=== PATIENT | male | born 1960 ===

== ENCOUNTER 2024-08-08 13:33 | Outpatient (AMB) | payer MEDICARE, OTHER, SELFPAY ==
--- NOTE | 2024-08-08 13:33 | A.OFFVIS_ITS ---
Vital Signs 3 08/08/24 13:36 Height 6 ft 1.5 in Weight 209 lb 7.026 oz BMI 27.3 BP 110/70 Blood Pressure Location Lt brachial Position Sitting Pulse 76 Pulse Source Pulse Oximeter Pulse Oximetry (%) 97 Oxygen Delivery Method Room Air Intake Visit Reasons: dyspnea on exertion [employer] Required: No Accompanied by: Self / Same As Patient Allergies No Known Allergies Allergy (Verified 08/08/24 13:37) HPI Comments Details: The patient is here for pulmonary evaluation. The patient is a 64-year-old gentleman with a h/o GALLO on CPAP that has been complaining some difficulty breathing for the last few years. Initially started in 2021. started developing some difficulty inhaling in. Feel like he could not get a deep breath in. Moderate severity. The symptoms come and go, and currently feeling well. Tried inhalers without any significant improvement. Part of the workup he also did have a CT scan of the chest. Actually demonstrated multiple pulmonary nodules largest 1 measuring 7 mm in size. It was followed for some time without any significant changes although the nodules are intermediate in size. Patient subsequently had undergone Pulmonary function studies. The flow volume loop Appearance and plateauing of the flows in 1 of the flows during the inspiratory phase. This suggests the possibility of a dynamic extrathoracic airway resistance or obstruction. He does have a history of sleep apnea so therefore it could be redundant tissue although most likely related to vocal cord dysfunction. At this point will have him repeat the CT scan to follow-up with the pulmonary nodules since he has been more than a year and also should undergo speech therapy to give him good recommendations in order to work with underlying vocal cord dysfunction and laryngeal spasms current the patient is feeling better so therefore no further interventions required at this time. Will follow-up after the studies in 33 minutes. He has not issues prior to this he will call for an earlier assessment. [facility] Medical History (Updated 08/10/24 @ 21:49 by Ilya Sheikh MD) Pulmonary nodules Vocal cord dysfunction GALLO on CPAP GERD (gastroesophageal reflux disease) Dyspnea Social History (Updated 08/08/24 @ 13:40 by Nicole Owen CMA) Patient Tobacco Use Status: Never used Tobacco Review of Systems Const Denies fatigue ENT Reports no additional complaints Card Denies chest pain and Denies dyspnea Resp Reports cough, Denies dyspnea and Denies wheezing GI Reports dyspepsia and Reports heartburn Musc Reports no additional complaints Skin/Breast Denies rash Neuro Reports no additional complaints Endo Denies fatigue Aller/Immun Denies wheezing Physical Exam Vital Signs: Last Vital Signs Pulse 76 08/08/24 13:36 BP 110/70 08/08/24 13:36 Pulse Ox 97 08/08/24 13:36 Oxygen Delivery Method Room Air 08/08/24 13:36 BMI result Body Mass Index 27.3 Const General: comfortable HEENT Head: Yes normocephalic Neck Neck: Yes supple Chest Chest palpation & inspection: normal inspection of the chest Resp Effort & Inspection: normal respiratory effort Auscultation: clear to auscultation bilaterally Cardio Heart sounds: S1 normal heart sound present and S2 normal heart sound present GI Palpation (GI): Soft to palpation Skin General skin exam: no rashes or lesions noted Extrem General: Yes no clubbing, cyanosis or edema Assessment & Plan Assessment & Plan (1) Dyspnea: Code(s): R06.00 - Dyspnea, unspecified Category: Medical Qualifiers: Dyspnea type: shortness of breath Qualified Code(s): R06.02 - Shortness of breath (2) GERD (gastroesophageal reflux disease): Code(s): K21.9 - Gastro-esophageal reflux disease without esophagitis Category: Medical Qualifiers: Esophagitis presence: without esophagitis Qualified Code(s): K21.9 - Gastro-esophageal reflux disease without esophagitis (3) GALLO on CPAP: Code(s): G47.33 - Obstructive sleep apnea (adult) (pediatric) Category: Medical (4) Vocal cord dysfunction: Comment: based on FVL Code(s): J38.3 - Other diseases of vocal cords Category: Medical (5) Pulmonary nodules: Comment: largest 7mm in size Code(s): R91.8 - Other nonspecific abnormal finding of lung field Category: Medical Plan Repeat CT chest, pt prefers [facility] Speech evaluation for recommendations for suspicion of vocal cord dysfuction reflux diet sleep with HOB elevated continue APAP F/U 2-3 months Orders: Orders 2 CT chest wo IV con Today R91.8 - Other nonspecific abnormal finding of lung field Referrals 2 Speech and Hearing Referral J38.3 - Other diseases of vocal cords Coding Level of Care Code New Pt Level 4 (64238) Diagnoses Shortness of breath R06.02 Dyspnea type: shortness of breath Gastroesophageal reflux disease without esophagitis K21.9 Esophagitis presence: without esophagitis GALLO on CPAP G47.33 Vocal cord dysfunction J38.3 Pulmonary nodules R91.8 Time Spent (min) 40
[2024-08-08 13:36] VITALS: BP 110/70; PULSE 76; O2SAT 97; BMI 27.3
== END 2024-08-08 14:13 | disposition home or self-care (01) ==
PROVIDERS: PCP Family Medicine; Visit Provider Hospitalist
DX: R06.02 Shortness of breath (principal); K21.9 Gastro-esophageal reflux disease without esophagitis; G47.33 Obstructive sleep apnea (adult) (pediatric); J38.3 Other diseases of vocal cords; R91.8 Other nonspecific abnormal finding of lung field
CPT/HCPCS: 99204

== ENCOUNTER → 2024-08-08 13:33 | Outpatient (BNVA) | payer MEDICARE, OTHER, SELFPAY | PROVIDERS: PCP Family Medicine; Visit Provider Hospitalist | DX: G47.33 Obstructive sleep apnea (adult) (pediatric) (principal); R06.02 Shortness of breath; K21.9 Gastro-esophageal reflux disease without esophagitis; J38.3 Other diseases of vocal cords; R91.8 Other nonspecific abnormal finding of lung field | CPT/HCPCS: 99202 ==

== ENCOUNTER 2024-10-02 10:59 | Outpatient (AMB) | payer MEDICARE, OTHER, SELFPAY ==
--- OUTSIDE RECORDS SUMMARY | 2024-09-26 23:59 | XMS_ITS | Continuity of Care Document ---
Author Organization [facility] Address [address], [address], [address] [place] [id number]- Care Team Providers Care Foam Caster Name Role Phone Cody HERNANDEZ, Alexis Gutierrez Primary Care Physician [place] [facility] [place] 08/27[place]24 - 09/26/24 [facility] [address], [address] [place] [id number]- Encounter Type: Triage Allergies, Adverse Reactions, Alerts No Known Allergies Immunizations Given and Recorded Vaccine Date Status Refusal Reason SARS-CoV-2 (COVID-19) mRNA BNT-162b2 vac 02/11/21 Recorded SARS-CoV-2 (COVID-19) mRNA BNT-162b2 vac 06/01/20 Recorded SARS-CoV-2 (COVID-19) mRNA BNT-162b2 vac 05/11/20 Recorded influenza virus vaccine, inactivated 12/19/18 Give n tetanus/diphtheria/pertussis, acel(Tdap) 02/18/13 Recorded tetanus-diphtheria toxoids (Td) 03/05/01 Recorded Medications Clotrimazole 1% solution Topically, 2 times a day, 0 Refills, Maintenance, 10/17/23 8:46:00 AM EDT, Partial fill upon patientrequest if the prescription is for a schedule II opioid drug. Start Date: 10/17/23 Status: Ordered Repeat number: 1 clotrimazole 1% topical cream 0 Refills, Maintenance Start Date: 08/09/23 Status: Ordered Repeat number: 1 cyclobenzaprine 10 mg oral tablet 1, tablet, By Mouth, Daily, PRN, # 90 tablet, Refills 3, Tot. Refills 3, Maintenance, NEEDED FORNECK/SHOULDER SPASM, 08/05/24 3:37:00 PM EDT, Route to Pharmacy Electronically, [facility]/pharmacy #[id number], 185.8, cm, 08/05/24 15:17:00 EDT, Height Start Date: 08/05/24 Status: Ordered Quantity: 90.0 Unit: tablet Repeat number: 4 diclofenac 1% topical gel 1 application, Topically, 4 times a day, # 100 Gm, 2 Refills, Maintenance, 10/17/23 9:09:00 AM EDT, Gel, Partial fill upon patient request if the prescription is for a schedule II opioid drug., 185.6,cm, 10/17/23 8:39:00 EDT, Height Start Date: 10/17/23 Status: Ordered Quantity: 100.0 Unit: g Repeat number: 3 gabapentin 100 mg oral capsule 300 mg, 3, capsule, By Mouth, 3 times a day, # 810 capsule, Refills 3, Tot. Refills 3, Maintenance,08/05/24 3:34:00 PM EDT, Route to Pharmacy Electronically, [facility]/pharmacy #[id number], Partial fill upon patient request if the prescription is for a schedule II opioid drug., 185.8, cm, 08/05/24 15:17:00 EDT,Height Start Date: 08/05/24 Status: Ordered Quantity: 810.0 Unit: capsule Repeat number: 4 Glucosamine Chondroitin MSM Complex 0 Refills, Maintenance, 04/11/17 10:37:48 AM EST Start Date: 04/11/17 Status: Ordered Repeat number: 1 ibuprofen 200 mg oral tablet 200 mg, 1, tablet, By Mouth, Every 6 hours, Refills 0, Maintenance, 08/03/22 9:41:00 AM EDT, Partial fill upon patient request if the prescription is for a schedule II opioid drug. Start Date: 08/03/22 Status: Ordered Repeat number: 1 ketoconazole 2% topical cream Topically, Daily, 0 Refills, Maintenance, 03/08/23 1:27:00 PM EST, Partial fill upon patient request if the prescription is for a schedule II opioid drug. Start Date: 03/08/23 Status: Ordered Repeat number: 1 Multivitamin Daily, 0 Refills, Maintenance, 04/11/17 10:38:48 AM EST Start Date: 04/11/17 Status: Ordered Repeat number: 1 Nature's Bounty Red Krill Oil 500 mg oral capsule 2 capsule = 1,000 mg, By Mouth, 2 times a day, 0 Refills, Maintenance, 12/19/18 1:28:52 PM EDT Start Date: 12/19/18 Status: Ordered Repeat number: 1 Tylenol 8 Hour 650 mg oral tablet, extended release 2 tablet = 1,300 mg, By Mouth, Every 8 hours, OTC, 0 Refills, Maintenance, 03/13/22 8:05:00 AM EST, Partial fill upon patient request if the prescription is for a schedule II opioid drug. Start Date: 03/13/22 Status: Ordered Repeat number: 1 Vitamin D3 oral tablet 1 tablet = 400 International_Units, By Mouth, Daily, # 30 tablet, 0 Refills, Maintenance, 04/11/17 10:39:01 AM EST, Tablet Start Date: 04/11/17 Status: Ordered Quantity: 30.0 Unit: tablet Repeat number: 1 Zinc = 140 mg, By Mouth, Daily, 0 Refills, Maintenance, 12/19/18 1:26:12 PM EDT Start Date: 12/19/18 Status: Ordered Repeat number: 1 Problem List Condition Confirmation Course Effective Dates Status H ealth Status Informant Actinic keratosis Confirmed Active Angiolipoma Confirmed Active Anxiety Confirmed Active [facility] arthritis Confirmed Active Acid reflux Confirmed Active Headache Confirmed Active Neuropathy of bilateral feet Confirmed Active Osteoarthritis Confirmed Active Seborrheic keratoses Confirmed Active Swelling of lower leg Confirmed Active Venous insufficiency of both lower extremities Confirmed Active Vitamin D deficiency Confirmed Active Social History Social History Type Response Smoking Status Never smoker entered on: 05/03/17 Sex Sex Representation Male (finding) Patient Care team information Care Team Personnel Name: Alexis Ross MD Position: [facility] Physician - Primary Care Member Role: PCP Address: [address] [place] [address]- Telecom: Care Team Related Persons Name: KVNG PAN Insurance Providers Guarantor name: CODY PAN Health Plan Information #: 1 Payer: MEDICARE B Payer Identifier: ZAYDA Member Number: [id number] Group Number: [id number] Subscriber Identifier: [id number] Relationship to Subscriber: self Coverage Type: NA Coverage Verification Date: NA Telecom: NA Address: Health Plan Information #: 2 Payer: [employer] Payer Identifier: ZAYDA Member Number: [id number] Group Number: [id number] Subscriber Identifier: [id number] Relationship to Subscriber: self Coverage Type: [employer]--Medicare Supplement Coverage Verification Date: ZAYDA Telecom: ZAYDA Address: NA
[2024-10-02 11:15] VITALS: BP 142/80; PULSE 70; O2SAT 100; BMI 27.8
--- NOTE | 2024-10-02 11:15 | MHC.OFFVIS ---
Vital Signs 10/02/24 11:15 Height 6 ft 1.5 in Weight 213 lb 13.574 oz BMI 27.8 BP 142/80 H Blood Pressure Location Lt brachial Position Sitting Pulse 70 Pulse Source Pulse Oximeter Pulse Oximetry (%) 100 Oxygen Delivery Method Room Air Intake Visit Reasons: Dyspnea on Exertion [employer] Required: No Accompanied by: Self / Same As Patient Allergies No Known Allergies Allergy (Verified 10/02/24 11:18) HPI Comments Details: The patient is a 64-year-old gentleman with a h/o GALLO on CPAP that has been complaining some difficulty breathing for the last few years. Initially started in 2021. started developing some difficulty inhaling in. Feel like he could not get a deep breath in. Moderate severity. The symptoms come and go, and currently feeling well. Tried inhalers without any significant improvement. Part of the workup he also did have a CT scan of the chest. Actually demonstrated multiple pulmonary nodules largest 1 measuring 7 mm in size. It was followed for some time without any significant changes although the nodules are intermediate in size. Patient subsequently had undergone Pulmonary function studies. The flow volume loop Appearance and plateauing of the flows in 1 of the flows during the inspiratory phase. This suggests the possibility of a dynamic extrathoracic airway resistance or obstruction. He does have a history of sleep apnea so therefore it could be redundant tissue although most likely related to vocal cord dysfunction. At this point will have him repeat the CT scan to follow-up with the pulmonary nodules since he has been more than a year and also should undergo speech therapy to give him good recommendations in order to work with underlying vocal cord dysfunction and laryngeal spasms current the patient is feeling better so therefore no further interventions required at this time. Will follow-up after the studies in 33 minutes. He has not issues prior to this he will call for an earlier assessment. 10/02/2024 the patient is here for a pulmonary follow-up visit. He actually been feeling well until recently we started developing some heaviness and pressure in the anterior chest area. Primarily when taking a deep breath in. Initially was moderate in amount in his subsided to some. He still feels it on deep inhalation. He also has a had a cough. He did have a CT scan of the chest which I personally reviewed demonstrating no evidence of any airway disease. He does have some stable pulmonary nodules that have been stable for many years so therefore no additional serial imaging studies warranted. He is still waiting to hear back from speech pathology regarding the speech therapy for the vocal cord dysfunction. In addition to that he does have some wheezing on exam. He has tried albuterol in the past without any significant improvement. Will try him on Symbicort at this time he will use a spacer. He also knows to rinse and gargle. If he continues to be symptomatic we can consider also doing a methacholine challenge and blood work to assess for hyperreactive will hypersensitivity reactions. [facility] Medical History (Updated 10/02/24 @ 21:42 by Ilya Sheikh MD) Reactive airway disease Pulmonary nodules Vocal cord dysfunction GALLO on CPAP GERD (gastroesophageal reflux disease) Dyspnea Social History Patient Tobacco Use Status: Never used Tobacco Review of Systems Const Denies fatigue ENT Reports no additional complaints Card Denies chest pain and Reports dyspnea Resp Reports cough and Reports dyspnea GI Reports dyspepsia and Reports heartburn Musc Reports no additional complaints Skin/Breast Denies rash Neuro Reports no additional complaints Endo Denies fatigue Physical Exam Vital Signs: Last Vital Signs Pulse 70 10/02/24 11:15 BP 142/80 H 10/02/24 11:15 Pulse Ox 100 10/02/24 11:15 Oxygen Delivery Method Room Air 10/02/24 11:15 BMI result Body Mass Index 27.8 Const General: comfortable HEENT Head: Yes normocephalic Neck Neck: Yes supple Chest Chest palpation & inspection: normal inspection of the chest Resp Effort & Inspection: normal respiratory effort Auscultation: wheezes and diminished lung sounds Cardio Heart sounds: S1 normal heart sound present and S2 normal heart sound present GI Palpation (GI): Soft to palpation Skin General skin exam: no rashes or lesions noted Extrem General: Yes no clubbing, cyanosis or edema Assessment & Plan Assessment & Plan (1) Dyspnea: Code(s): R06.00 - Dyspnea, unspecified Category: Medical Qualifiers: Dyspnea type: shortness of breath Qualified Code(s): R06.02 - Shortness of breath (2) GERD (gastroesophageal reflux disease): Code(s): K21.9 - Gastro-esophageal reflux disease without esophagitis Category: Medical Qualifiers: Esophagitis presence: without esophagitis Qualified Code(s): K21.9 - Gastro-esophageal reflux disease without esophagitis (3) GALLO on CPAP: Code(s): G47.33 - Obstructive sleep apnea (adult) (pediatric) Category: Medical (4) Vocal cord dysfunction: Comment: based on FVL Code(s): J38.3 - Other diseases of vocal cords Category: Medical (5) Pulmonary nodules: Comment: largest 7mm in size Code(s): R91.8 - Other nonspecific abnormal finding of lung field Category: Medical (6) Reactive airway disease: Code(s): J45.909 - Unspecified asthma, uncomplicated Category: Medical Qualifiers: Asthma severity: moderate Asthma persistence: persistent Asthma complication type: uncomplicated Qualified Code(s): J45.40 - Moderate persistent asthma, uncomplicated Plan Repeat CT chest stable start Symbicort with spacer Speech evaluation for recommendations for suspicion of vocal cord dysfuction reflux diet sleep with HOB elevated continue APAP consider Bloodwork/allergy testing consider MEDHAT F/U 3-4 months Medications: New budesonide-formoterol 160-4.5 mcg/actuation (Symbicort) 2 puffs inhalation BID 10.2 grams 11RF 30 days J44.89 - Other specified chronic obstructive pulmonary disease Coding Level of Care Code Est Pt Level 4 (04342) Complex EM visit Add On G2211 Diagnoses Shortness of breath R06.02 Dyspnea type: shortness of breath Gastroesophageal reflux disease without esophagitis K21.9 Esophagitis presence: without esophagitis GALLO on CPAP G47.33 Vocal cord dysfunction J38.3 Pulmonary nodules R91.8 Moderate persistent reactive airway disease without complication J45.40 Asthma severity: moderate Asthma persistence: persistent Asthma complication type: uncomplicated Time Spent (min) 20
--- OUTSIDE RECORDS SUMMARY | 2024-10-02 11:49 | XMS_ITS | Continuity of Care Document ---
Author Name [facility] Organization [facility] Care Team Providers Care Flight Coordinator Name Role Phone [facility] Unavailable Unavailable Problems Combined list of problems from Department of Defense and Veterans Affairs facilities. It does not include entries that were removed or entered in error. Problem Status Onset Date Problem Type Date of Resolution Comments Source Autoimmune disease Active Condition Feb 01, 2022 Entered By: DONOVAN GONZALEZ Comment: referred to rheumatology by community PCP [facility] GERD - Gastro-Esophagea l Reflux Disease ([facility] [id number]) Active Condition Jan 18, 2018 Entered By: DONOVAN GONZALEZ Comment: Oct 2017 EGD negative erosion, Dr. Rebollar [facility] GI [facility] Hearing Loss ([facility] [id number]) Active Condition [facility] Migraine Active Condition Feb 01 Entered By: DONOVAN GONZALEZ Comment: referred to neurology by community PCP [facility] Multiple nodules of lung Active Condition Feb 01, 2022 Entered By: DONOVAN GONZALEZ Comment: referred to pulm by his community PCP [place] [facility] Obstructive Sleep Apnea of Adult ([facility] [id number]) Active Condition [facility] Onychomycosis of toenails Active Condition [facility] Tinnitus Active Condition [facility] Trigger finger Active Condition Jan 032017 Entered By: DONOVAN GONZALEZ Comment: 4th digit right hand [facility] Diagnosis: ICD-10-CM G47.33 Obstructive sleep apnea (adult) (pediatric) Active Diagnosis [facility] Diagnosis: ICD-10-CM H25.813 Combined forms of age-related cataract, bilateral [facility] Diagnosis: ICD-10-CM Z46.1 Encounter for fitting and adjustment of hearing aid Active Diagnosis [facility] Diagnosis: ICD-10-CM G90.09 Other idiopathic peripheral autonomic neuropathy [facility] Diagnosis: ICD-10-CM Z46.0 Encounter for fit/adjst of spectacles and contact lenses Active Diagnosis [facility] Diagnosis: ICD-10-CM R60.9 Edema, unspecified Active Diagnosis [facility] Medications Combined list of outpatient medications from Department of Defense and Veterans Affairs facilities.Medications provided include 1) outpatient medications from the last 15 months, and 2) patient-reported medications. Medication Details Route Status Patient Instructions Prescription Expires Prescription Number Last Dispense Date Ordering Provider Order Date Order Qty Source CARBOXYMETH YLCELLULOSE NA 0.5% SOLN,OPH INSTILL 1 DROP INTO EACH EYE FOUR TIMES A DAY FOR DRY EYE OPHTHA LMIC ACTIVE 09/03/2025 [id number] ARCADIO VALENTINE 2024 45 [facility] CHOLECALCIF TIERA 10MCG (400UNIT) TAB TAKE ONE TABLET BY MOUTH ONCE DAILY ORAL ACTIVE PADMA GONZALEZ 2017 [facility] CHONDROITIN SULFATE CAP/TAB TAKE ONE TABLET BY MOUTH ONCE DAILY ORAL ACTIVE PADMA GONZALEZ 2017 [facility] CLOTRIMAZOL E 1% SOLN,TOP APPLY 1 DROP TOPICALL Y ONCE DAILY FOR FUNGAL INFECTIO N APPLY TO EACH AFFECTED TOENAIL. APPLY WHEN NAIL IS DRY NOT AFTER SHOWER OR BATH. USE FOR AT LEAST 9-12 MONTHS FOR BEST CLINICAL RESULT. FOR FUNGAL INFECTIO N APPLY TO EACH AFFECTED TOENAIL. APPLY WHEN NAIL IS DRY NOT AFTER SHOWER OR BATH. USE FOR AT LEAST 9-12 MONTHS FOR BEST CLINICAL RESULT. TOPICA L 06/12/2024 [id number] BRADLEY POTTS 2023 30 [facility] FISH OIL 1000MG (500MG DHA/EPA) CAP,ORAL TAKE 1 CAPSULE BY MOUTH ONCE DAILY ORAL ACTIVE PADMA GONZALEZ 2017 [facility] HYDROPHILIC (EQV EUCERIN) CREAM,TOP APPLY A SMALL AMOUNT TOPICALL Y ONCE DAILY FOR DRY SKIN TOPICA L ACTIVE 12/06/2024 [id number] BRADLEY POTTS 2023 454 [facility] KETOCONAZOL E 2% CREAM,TOP APPLY A MODERATE AMOUNT TOPICALL Y DIRECTED BY PROVIDER 1-2 TIMES PER DAY TO AFFECTED AREA TOPICA L ACTIVE 05/15/2025 [id number] 5 BRADLEY POTTS 2024 30 [facility] KETOCONAZOL E 2% CREAM,TOP APPLY A MODERATE AMOUNT TOPICALL Y DIRECTED BY PROVIDER 1-2 TIMES PER DAY TO AFFECTED AREA TOPICA L DISCONT INUED 06/12/2024 [id number] BRADLEY POTTS 2023 30 [facility] LIDOCAINE 5% PATCH APPLY 1 PATCH TOPICALL Y ONCE DAILY FOR NERVE PAIN (LEAVE PATCH ON FOR 12 HOURS, THEN REMOVE PATCH) TOPICA L 07/06/2024 [id number] PADMA GONZALEZ 2023 30 [facility] MINERAL OIL,LIGHT/P ETROLATUM (PF) OINT,OPH APPLY THIN RIBBON INTO EACH EYE AT BEDTIME FOR DRY EYE OPHTHA LMIC ACTIVE 09/03/2025 [id number] ARCADIO VALENTINE 2024 3 [facility] MULTIVITAMI NS W/MINERALS TAB TAKE ONE TABLET BY MOUTH ONCE DAILY ORAL ACTIVE PADMA GONZALEZ 2017 [facility] Allergies, Adverse Reactions, Alerts Combined list of allergies from Department of Defense and Veterans Affairs facilities. It does not include entries that were removed or entered in error. Substance Category Reaction Severity Reaction type Status Date Reported Comments Source No Known Allergies Drug allergy (disorder) active 01/04/2017 [employer] Immunizations Combined list of available immunizations from the Department of Defense and Veterans Affairs facilities. Immunization Series Date Given Administered By Site Reaction Lot Number CVX Code Drug Chief Diversity Officer Status Comments Source COVID-19 (PFIZER), MRNA, LNP-S, PF, 30 MCG/0.3 ML DOSE 2 2020 208 complet ed PFR; [id number]; 1 [facility] COVID-19 (PFIZER), MRNA, LNP-S, PF, 30 MCG/0.3 ML DOSE 1 2020 208 complet ed PFR; [id number]; 1 [facility] TDAP 2018 115 complet ed Outside Provider [facility] tuberculin skin test; purified protein derivative solution, intradermal 1 2001 Unknown, Provider [id number] Sanofi Pasteur ([facility]) complet ed tuberculi n skin test; purified protein derivativ e solution, intraderm al DoD influenza virus vaccine, whole virus 0 2000 [id number] Sanofi Pasteur ([facility]) complet ed influenza virus vaccine, whole virus DoD measles, mumps and rubella virus vaccine 0 2000 03 () Not Given measles, mumps and rubella virus vaccine DoD tuberculin skin test; purified protein derivative solution, intradermal 1 2000 Unknown, Provider [id number] Fredrick (CON) complet ed tuberculi n skin test; purified protein derivativ e solution, intraderm al DoD influenza virus vaccine, whole virus 0 2000 [id number] 16 Wyeth-Ayerst (WAL) complet ed influenza virus vaccine, whole virus DoD typhoid vaccine, parenteral, other than acetone-kille d, dried 0 1999 [id number] [place]ught (CON) complet ed typhoid vaccine, parentera l, other than acetone-k illed, dried DoD hepatitis B vaccine, adult dosage 3 1999 [id number] 43 Merck (MSD) complet ed hepatitis B vaccine, adult dosage DoD influenza virus vaccine, whole virus 0 [id number] 16 Wyeth-Ayerst (WAL) complet ed influenza virus vaccine, whole virus DoD hepatitis B vaccine, adult dosage 2 1998 [id number] 43 Merck (MSD) complet ed hepatitis B vaccine, adult dosage DoD hepatitis B vaccine, adult dosage 1 1998 [id number] 43 Merck (MSD) complet ed hepatitis B vaccine, adult dosage DoD hepatitis B vaccine, adult dosage 1 1998 [id number] 43 Merck (MSD) complet ed hepatitis B vaccine, adult dosage DoD tuberculin skin test; purified protein derivative solution, intradermal 1 1998 Unknown, Provider [id number] 96 Fredrick (CON) complet ed tuberculi n skin test; purified protein derivativ e solution, intraderm al DoD influenza virus vaccine, whole virus 0 [id number] 16 Fredrick (CON) complet ed influenza virus vaccine, whole virus DoD hepatitis A vaccine, adult dosage 2 1997 [id number] 52 [facility] ([facility]) complet ed hepatitis A vaccine, adult dosage DoD hepatitis A vaccine, adult dosage 2 1997 [id number] 52 Merck (MSD) complet ed hepatitis A vaccine, adult dosage DoD hepatitis A vaccine, adult dosage 2 1997 [id number] 52 Merck (MSD) complet ed hepatitis A vaccine, adult dosage DoD tuberculin skin test; purified protein derivative solution, intradermal 1 1997 Unknown, Provider CON 96 Fredrick (CON) complet ed tuberculi n skin test; purified protein derivativ e solution, intraderm al DoD tetanus and diphtheria toxoids, adsorbed, preservative free, for adult use (2 Lf of tetanus toxoid and 2 Lf of diphtheria toxoid) 0 1997 [id number] Teredannie (CON) complet ed tetanus and diphtheri a toxoids, adsorbed, preservat flako free, for adult use (2 Lf of tetanus toxoid and 2 Lf of diphtheri a toxoid) DoD hepatitis A vaccine, adult dosage 1 1997 [id number] 52 Merck (MSD) complet ed hepatitis A vaccine, adult dosage DoD influenza virus vaccine, whole virus 0 19962783 [id number] 16 Teredannie (CON) complet ed influenza virus vaccine, whole virus DoD yellow fever vaccine 0 1996 [id number] 37 Teredannie (CON) complet ed yellow fever vaccine DoD typhoid vaccine, parenteral, acetone-kille d, dried (U.S. ) 2 [id number] 53 Wyeth-Ayerst (Inactive) ([place]) complet ed typhoid vaccine, parentera l, acetone-k illed, dried ([place]S. ) DoD meningococcal polysaccharid e vaccine (MPSV4) 0 19968534 [id number] 32 [facility] (CON) complet ed meningoco ccal polysacch aride vaccine (MPSV4) [facility] influenza virus vaccine, whole virus 0 1996 [id number] 16 [facility] (CON) complet ed influenza virus vaccine, whole virus DoD tuberculin skin test; purified protein derivative solution, intradermal 1 1995 Unknown, Provider 96 () complet ed tuberculi n skin test; purified protein derivativ e solution, intraderm al [facility] typhoid vaccine, parenteral, acetone-kille d, dried ([place].S. ) 1 1987 [id number] 53 Merck (MSD) complet ed typhoid vaccine, parentera l, acetone-k illed, dried ([place].S. ) DoD tetanus and diphtheria toxoids, adsorbed, preservative free, for adult use (2 Lf of tetanus toxoid and 2 Lf of diphtheria toxoid) 0 1987 09 () complet ed tetanus and diphtheri a toxoids, adsorbed, preservat flako free, for adult use (2 Lf of tetanus toxoid and 2 Lf of diphtheri a toxoid) DoD yellow fever vaccine 0 [id number] 37 [facility] (CON) complet ed yellow fever vaccine DoD trivalent poliovirus vaccine, live, oral 0 1977 02 () complet ed trivalent polioviru s vaccine, live, oral DoD Results Combined list of recent chemistry, hematology and other laboratory results from Department of Defense and Veterans Affairs, ranging from 15 months to all on record, depending upon the facility. Order Name Results Value Reference Range Date Interpretation Specimen Comments Source LIPID PANEL, NON FASTING CHOLESTEROL [MASS/VOLUM E] IN SERUM OR PLASMA 164 mg/dL 01/29 Specimen Type: SERUM No comment entered. Ordering Provider: KELLIE GONZALEZ Report Released Date/Time: Jan 16, 2024 04:30 PM Reporting Lab: [place] [facility] [address] [address] Performing Lab: [facility] [address] [address] [facility] LIPID PANEL, NON FASTING TRIGLYCERID E [MASS/VOLUM E] IN SERUM OR PLASMA 101 mg/dL 0 - 150 01/29 Specimen Type: SERUM No comment entered. Ordering Provider: KELLIE GONZALEZ Report Released Date/Time: Jan 16, 2024 04:30 PM Reporting Lab: [facility] [address] [address] Performing Lab: [facility]N [facility] [address] [address] [facility] LIPID PANEL, NON FASTING CHOLESTEROL IN LDL [MASS/VOLUM E] IN SERUM OR PLASMA BY CALCULATION 104 mg/dL 0 - 129 01/29 Specimen Type: SERUM No comment entered. Ordering Provider: KELLIE GONZALEZ Report Released Date/Time: Jan 16, 2024 04:30 PM Reporting Lab: [facility]N [facility]ENTERUSE[address] [address] Performing Lab: [facility]N [facility]ENTERUSE[address] [address] [facility] LIPID PANEL, NON FASTING CHOLESTEROL .TOTAL/CHOL ESTEROL IN HDL [MASS RATIO] IN SERUM OR PLASMA 4.1 01/29 Specimen Type: SERUM No comment entered. Ordering Provider: KELLIE GONZALEZ Report Released Date/Time: Jan 16, 2024 04:30 PM Reporting Lab: [facility]TRN [facility]ETS [facility] [address] [address] Performing Lab: [facility]ITALR[facility]MARYN [facility]ENTERUSE[address] [address] [facility]USE [facility] LIPID PANEL, NON FASTING CHOLESTEROL IN HDL [MASS/VOLUM E] IN SERUM OR PLASMA 40 mg/dL 40 - 60 01/29 Specimen Type: SERUM No comment entered. Ordering Provider: KELLIE GONZALEZ Report Released Date/Time: Jan 16, 2024 04:30 PM Reporting Lab: [place] [facility] [facility] [address] [address] Performing Lab: [place] [facility] [facility] [facility] [address] [address] [place] [facility] [facility] BASIC METABOLIC PANEL (non-fast ing) UREA NITROGEN [MASS/VOLUM E] IN SERUM OR PLASMA 11 mg/dL 7 - 25 01/29 Specimen Type: SERUM No comment entered. Ordering Provider: KELLIE GONZALEZ Report Released Date/Time: Jan 16, 2024 04:30 PM Reporting Lab: [place] [facility] [facility] [address] [address] Performing Lab: [place] [facility] [facility] [facility] [address] [address] [facility] W[facility]N [facility] BASIC METABOLIC PANEL (non-fast ing) GLUCOSE [MASS/VOLUM E] IN SERUM OR PLASMA 63 mg/dL 65 - 100 01/29 L Specimen Type: SERUM No comment entered. Ordering Provider: KELLIE GONZALEZ Report Released Date/Time: Jan 16, 2024 04:30 PM Reporting Lab: [place] [facility] [facility] [facility] [address] [address] Performing Lab: [place] [facility] [facility] [facility]ENTERUSE[address] [address] [facility]ITALRL WSTRN [facility]USE [facility] BASIC METABOLIC PANEL (non-fast ing) SODIUM [MOLES/VOLU ME] IN SERUM OR PLASMA 144 mmol/L 135 - 145 01/29 Specimen Type: SERUM No comment entered. Ordering Provider: KELLIE GONZALEZ Report Released Date/Time: Jan 16, 2024 04:30 PM Reporting Lab: [place] [facility] [facility] [address] [address] Performing Lab: [place] [facility] [facility] [facility]ENTERUSETS [address] [address] [facility]ITAL[facility] W[facility]N [place] [facility] BASIC METABOLIC PANEL (non-fast ing) POTASSIUM [MOLES/VOLU ME] IN SERUM OR PLASMA 3.9 mmol/L 3.5 - 5.0 01/29 Specimen Type: SERUM No comment entered. Ordering Provider: KELLIE GONZALEZ Report Released Date/Time: Jan 16, 2024 04:30 PM Reporting Lab: [address] [address] Performing Lab: [address] [address] [facility] BASIC METABOLIC PANEL (non-fast ing) CHLORIDE [MOLES/VOLU ME] IN SERUM OR PLASMA 105 mmol/L 100 - 110 01/29 Specimen Type: SERUM No comment entered. Ordering Provider: KELLIE GONZALEZ Report Released Date/Time: Jan 16, 2024 04:30 PM Reporting Lab: [address] [address] Performing Lab: [address] [address] [facility] BASIC METABOLIC PANEL (non-fast ing) CARBON DIOXIDE, TOTAL [MOLES/VOLU ME] IN SERUM OR PLASMA 29 meq/L 20 - 30 01/29 Specimen Type: SERUM No comment entered. Ordering Provider: KELLIE GONZALEZ Report Released Date/Time: Jan 16, 2024 04:30 PM Reporting Lab: [address] [address] Performing Lab: [address] [address] [facility] BASIC METABOLIC PANEL (non-fast ing) CREATININE [MASS/VOLUM E] IN SERUM OR PLASMA 1.03 mg/dL 0.50 - 1.40 01/29 Specimen Type: SERUM No comment entered. Ordering Provider: KELLIE GONZALEZ Report Released Date/Time: Jan 16, 2024 04:30 PM Reporting Lab: [address] [address] Performing Lab: [facility] [place] [facility] [address] [address] [place] [facility] [facility] BASIC METABOLIC PANEL (non-fast ing) GLOMERULAR FILTRATION RATE/1.73 SQ M.PREDICTED [VOLUME RATE/AREA] IN SERUM, PLASMA OR BLOOD BY CREATININE- BASED FORMULA (CKD-EPI 2020) 81 mL/min 60 01/29 Specimen Type: SERUM No comment entered. Ordering Provider: KELLIE GONZALEZ Report Released Date/Time: Jan 16, 2024 04:30 PM Reporting Lab: [place] [facility] [place] [address] [address] Performing Lab: [place] [facility] [place] [address] [address] [place] [facility] [facility] CBC LEUKOCYTES [#/VOLUME] IN BLOOD BY AUTOMATED COUNT 5.66 10*3/u L 4.50 - 11.00 01/29 Specimen Type: BLOOD No comment entered. Ordering Provider: KELLIE GONZALEZ Report Released Date/Time: Jan 16, 2024 04:30 PM Reporting Lab: [place] [facility] [place] [address] [address] Performing Lab: [place] [facility] [place] [address] [address] [place] [facility] [place] [facility] CBC ERYTHROCYTE S [#/VOLUME] IN BLOOD BY AUTOMATED COUNT 4.57 10*6/u L 4.23 - 5.66 01/29 Specimen Type: BLOOD No comment entered. Ordering Provider: KELLIE GONZALEZ Report Released Date/Time: Jan 16, 2024 04:30 PM Reporting Lab: [facility] [place] [address] [address] Performing Lab: [place] [facility] [place] [address] [address] [place] [facility] [place] [facility] CBC HEMOGLOBIN [MASS/VOLUM E] IN BLOOD 14.5 g/dL 12.8 - 17 01/29 Specimen Type: BLOOD No comment entered. Ordering Provider: KELLIE GONZALEZ Report Released Date/Time: Jan 16, 2024 04:30 PM Reporting Lab: [facility] [place] [facility] [address] [address] Performing Lab: [facility] [place] [facility] [address] [address] [place] [facility] [place] [facility] CBC HEMATOCRIT [VOLUME FRACTION] OF BLOOD BY AUTOMATED COUNT 41.4 39.2 - 50.4 01/29 Specimen Type: BLOOD No comment entered. Ordering Provider: KELLIE GONZALEZ Report Released Date/Time: Jan 16, 2024 04:30 PM Reporting Lab: [place] [facility] [place] [facility] [address] [address] Performing Lab: [place] [facility] [place] [address] [address] [place] [facility] [place] [facility] CBC MCV [ENTITIC VOLUME] BY AUTOMATED COUNT 90.6 fL 82 - 99 01/29 Specimen Type: BLOOD No comment entered. Ordering Provider: KELLIE GONZALEZ Report Released Date/Time: Jan 16, 2024 04:30 PM Reporting Lab: [place] [facility] [place] [facility] [address] [address] Performing Lab: [place] [facility] [place] [address] [address] [place] [facility] [place] [facility] CBC MCHC [MASS/VOLUM E] BY AUTOMATED COUNT 35.0 g/dL 30.8 - 35.1 01/29 Specimen Type: BLOOD No comment entered. Ordering Provider: KELLIE GONZALEZ Report Released Date/Time: Jan 16, 2024 04:30 PM Reporting Lab: [place] [facility] [place] [facility] [address] [address] Performing Lab: [place] [facility] [place] [address] [address] [place] [facility] [facility] CBC PLATELETS [#/VOLUME] IN BLOOD BY AUTOMATED COUNT 201 10*3/u L 140 - 360 01/29 Specimen Type: BLOOD No comment entered. Ordering Provider: KELLIE GONZALEZ Report Released Date/Time: Jan 16, 2024 04:30 PM Reporting Lab: [place] [facility] [place] [facility] [address] [address] Performing Lab: [place] [facility] [facility] [address] [address] [place] [facility] [facility] CBC ERYTHROCYTE DISTRIBUTIO N WIDTH [RATIO] BY AUTOMATED COUNT 12.7 12.0 - 16.0 01/29 Specimen Type: BLOOD No comment entered. Ordering Provider: KELLIE GONZALEZ Report Released Date/Time: Jan 16, 2024 04:30 PM Reporting Lab: [place] [facility] [facility] [address] [address] Performing Lab: [place] [facility] [facility] [address] [address] [place] [facility] [facility] CBC MCH [ENTITIC MASS] BY AUTOMATED COUNT 31.7 pg 26.2 - 32.6 01/29 Specimen Type: BLOOD No comment entered. Ordering Provider: KELLIE GONZALEZ Report Released Date/Time: Jan 16, 2024 04:30 PM Reporting Lab: [place] [facility] [place] [address] [address] Performing Lab: [place] [facility] [facility] [address] [address] [place] [facility] [place] [facility] PSA PROSTATE SPECIFIC AG [MASS/VOLUM E] IN SERUM OR PLASMA 1.79 ng/mL 0.00 - 4.00 01/29 Specimen Type: SERUM No comment entered. Ordering Provider: KELLIE GONZALEZ Report Released Date/Time: Jan 16, 2024 04:30 PM Reporting Lab: [place] [facility] [facility] [address] [address] Performing Lab: [place] [facility] [place] [address] [address] [place] [facility] [place] [facility] LIVER FUNCTION PROTEIN [MASS/VOLUM E] IN SERUM OR PLASMA 6.5 g/dL 6.0 - 8.3 01/29 Specimen Type: SERUM No comment entered. Ordering Provider: KELLIE GONZALEZ Report Released Date/Time: Jan 16, 2024 04:30 PM Reporting Lab: [place] [facility] [place] [facility] [address] [address] Performing Lab: [place] [facility] [facility] [address] [address] [facility] [place] [facility] LIVER FUNCTION ALBUMIN [MASS/VOLUM E] IN SERUM OR PLASMA 3.6 g/dL 3.5 - 5.0 01/29 Specimen Type: SERUM No comment entered. Ordering Provider: KELLIE GONZALEZ Report Released Date/Time: Jan 16, 2024 04:30 PM Reporting Lab: [facility] [place] [address] [address] Performing Lab: [place] [facility] [address] [address] [facility]TRN [facility] LIVER FUNCTION ALKALINE PHOSPHATASE [ENZYMATIC ACTIVITY/VO LUME] IN SERUM OR PLASMA 73 U/L 40 - 150 01/29 Specimen Type: SERUM No comment entered. Ordering Provider: KELLEI GONZALEZ Report Released Date/Time: Jan 16, 2024 04:30 PM Reporting Lab: [facility] [place] [address] [address] Performing Lab: [place] [facility] [facility] [address] [address] [facility] TRN [facility] LIVER FUNCTION ASPARTATE AMINOTRANSF ERASE [ENZYMATIC ACTIVITY/VO LUME] IN SERUM OR PLASMA 19 U/L 5 - 34 01/29 Specimen Type: SERUM No comment entered. Ordering Provider: KELLIE GONZALEZ Report Released Date/Time: Jan 16, 2024 04:30 PM Reporting Lab: [facility] [place] [facility] [address] [address] Performing Lab: [place] [facility] [facility] [address] [address] [place] [facility] [place] [facility] LIVER FUNCTION ALANINE AMINOTRANSF ERASE [ENZYMATIC ACTIVITY/VO LUME] IN SERUM OR PLASMA 24 U/L 01/29 Specimen Type: SERUM No comment entered. Ordering Provider: KLELIE GONZALEZ Report Released Date/Time: Jan 16, 2024 04:30 PM Reporting Lab: [facility] [address] [facility] [address] Performing Lab: [facility] [address] [address] [facility] LIVER FUNCTION BILIRUBIN.T OTAL [MASS/VOLUM E] IN SERUM OR PLASMA 0.6 mg/dL 0.2 - 1.2 01/29 Specimen Type: SERUM No comment entered. Ordering Provider: KELLIE GONZALEZ Report Released Date/Time: Jan 16, 2024 04:30 PM Reporting Lab: [facility] [address] [address] Performing Lab: [facility] [address] [address] [place] [facility] Vital Signs Combined list of inpatient and outpatient Vital Signs from Department of Defense and Veterans Affairs, ranging from 12 months to all on record, depending upon the facility. Vital Sign Value Date Comments Source SYSTOLIC BLOOD PRESSURE 127 01/30/20 24 08:59:28 [facility] DIASTOLIC BLOOD PRESSURE 82 024 08:59:28 [facility] PULSE OXIMETRY 100 01/30/2024 08:59:28 [facility] WEIGHT 205 01/30/2024 08:59:28 [facility] BMI 28 kg/m2 01/30/2024 08:59:28 [facility] PAIN 2 01/30/2024 08:59:28 [facility] TEMPERATURE 97.7 01/30/2024 08:59:28 [facility] PULSE 70 01/30/2024 08:59:28 [facility] RESPIRATION 16 01/30/2024 08:59:28 [facility] Encounters Combined list of: 1) Encounters from Department of Veterans Affairs facilities going backup to the last 18 months, not all VA inpatient encounters are included; 2) Encounters from the Department of [facility] facilities going backup to 280 months. Location Location Details Encounter Type Encounter Number Reason For Visit Attending Provider ADM Date DC Date Status Disposition Source [facility] OUTPATIENT [id number] Pre Employm ent ERIC DANIELLE 01/04 Released w/o Limitations [facility] OFFICE O/P EST LOW 20 MIN [id number] Diagnos is: ICD-10- CM R60.9 Edema, unspeci fied Casey GONZALEZ 04/05 [facility] ORTHC/PROS TC MGMT SBSQ ENC [id number] Diagnos is: ICD-10- CM R60.9 Edema, unspeci fied Doyle ADAME 04/06 [facility] Out[facility] Encounter [id number] 04/27 [facility] En[facility] [id number] 05/13 [facility] En[facility] [id number] 05/21 [facility] Encounter [id number] 05/21 [facility] OFFICE O/P EST LOW 20 MIN [id number] Diagnos is: ICD-10- CM 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 KATLYN,ASHIA RLES D 06/11 [facility] DIABETIC CUSTOM MOLDED SHOE [id number] Diagnos is: ICD-10- CM 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 VENANCIO BOSE TT LA 06/27 [facility] COMPRE [place]PH [place]AM EST PT 1/ [id number] Diagnos is: ICD-10- CM H25.813 Combine d forms of age-rel ated catarac t, bilater al DURAN VALENTINE 07/03 [facility] FIT SPECTACLES MONOFOCAL [id number] Diagnos is: ICD-10- CM Z46.0 Encount er for fit/adj st of spectac les and contact lenses DURAN VALENTINE 07/03 [facility] Out[facility] Encounter [id number] EWELINAUvaldoLMINDIAALVAREZ SANCHEZ 07/05 [facility] TUBING WITH HEATING ELEMENT [id number] Diagnos is: ICD-10- CM G47.33 Obstruc tive sleep apnea (adult) (pediat nikhil) ST KAROLINA LEE E P 07/09 [facility] HEARING AID FITTING/CH ECKING [id number] Diagnos is: ICD-10- CM Z46.1 Encount er for fitting and adjustm ent of hearing aid Cathy STERN 07/09 [facility] POS AIRWAY PRESSURE CPAP [id number] Diagnos is: ICD-10- CM G47.33 Obstruc tive sleep apnea (adult) ([facility]) ALFREDO RAMIREZ 07/15 [facility] Out[facility] Encounter [id number] 07/30 [facility] RPR&REFITG SPECT XCP APHAKIA [id number] Diagnos is: ICD-10- CM Z46.0 Encount er for fit/adj st of spectac les and contact lenses DIANN LORENZ 08/07 [facility] Out[facility] En[facility] [id number] 08/29 [facility] Encounter [id number] 09/02 [facility] REPLACEMEN T NASAL CUSHION [id number] Diagnos is: ICD-10- CM G47.33 Obstruc tive sleep apnea (adult) ([facility]) KAROLINA MARTINEZ 09/02 [facility] Encounter [id number] ALVAREZ ALVAREZ 09/02 [facility] Out[facility] En[facility] [id number] 09/20 [facility] Out[facility] Encounter [id number] 09/23 [facility] POS AIRWAY PRESSURE CPAP [id number] Diagnos is: ICD-10- CM G47.33 Obstruc tive sleep apnea (adult) ([facility]) [facility] En[facility] [id number] 09/27 [facility] En[facility] [id number] 10/09 [facility] SPECIAL SUPPLIES PHYS/QHP [id number] Diagnos is: ICD-10- CM G47.33 Obstruc tive sleep apnea (adult) ([facility]) KAROLINA LEE E P 10/10 [facility] Out[facility] Encounter [id number] 10/11 [facility] Out[facility] Encounter [id number] 10/25 [facility] Out[facility] Encounter [id number] 11/05 [facility] Out[facility] Encounter [id number] [facility] OFFICE O/P EST MOD 30 MIN [id number] Diagnos is: ICD-10- CM 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 VENANCIO BOSE LA 12/24 [facility] Out[facility] Encounter [id number] 01/17 [facility] En[facility] [id number] 1.01/22 [facility] Encounter [id number] 01/29 [facility] OFFICE O/P EST LOW 20 MIN [id number] Diagnos is: ICD-10- CM G47.33 Obstruc tive sleep apnea (adult) ([facility]) Casey GONZALEZ 01/29 [facility] Out[facility] Encounter [id number] 02/18 [facility] Out[facility] Encounter [id number] [facility] Out[facility] Encounter [id number] 04/16 [facility] Out[facility] Encounter [id number] VENANCIO BOSE 05/14 [facility] Out[facility] Encounter [id number] 05/14 [facility] Encounter [id number] 05/27 [facility] SPECIAL SUPPLIES PHYS/QHP [id number] Diagnos is: ICD-10- CM G47.33 Obstruc tive sleep apnea (adult) ([facility]) KAROLINA MARTINEZ E P 06/02 [facility] OFFICE O/P EST LOW 20 MIN [id number] Diagnos is: ICD-10- CM 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 ASHIA POTTS D 06/03 [facility] DIABETIC CUSTOM MOLDED SHOE [id number] Diagnos is: ICD-10- CM 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, bilsuzi al DURAN VALENTINE 07/08 [facility] Out[facility] Encounter [id number] Virgen ALICEA 07/24 [facility] Out[facility] En[facility] [id number] 09/01 [facility] PT EDUCATION NOC INDIVID [id number] Diagnos is: ICD-10- CM G47.33 Obstruc tive sleep apnea (adult) ([facility]) Casey CARDOZA 09/30 [facility] Social History Combined list of available smoking, tobacco, and other social history from Department of Defense and Veterans Affairs facilities. Social History Type Response Date Comment Sourc e Tobacco smoking status [facility] VA-TOBACCO NEVER USED 01/29/2023 [facility] History of tobacco use VA-TOBACCO NEVER USED 01/30/2022 [facility] History of tobacco use VA-TOBACCO NEVER USED 01/31/2021 [facility] History of tobacco use VA-TOBACCO NEVER USED 05/10/2019 [facility] History of tobacco use VA-TOBACCO NEVER USED 12/31/2017 [facility] This section is an empty social history section. [facility] Plan of Care List of future care activities from Department of Veterans Affairs facilities. Additional future care activities may be listed in the Assessment and Plan section. Date/Time Care Activity Care Activity Detail Facili ty 11/28/2024 AMBULATORY - NONE AMBULATORY - NONE [place] [facility]
== END 2024-10-02 12:02 | disposition home or self-care (01) ==
LOC: HO.HPS 10:59
PROVIDERS: PCP Family Medicine; Visit Provider Hospitalist
DX: R06.02 Shortness of breath (principal); K21.9 Gastro-esophageal reflux disease without esophagitis; G47.33 Obstructive sleep apnea (adult) (pediatric); J38.3 Other diseases of vocal cords; R91.8 Other nonspecific abnormal finding of lung field; J45.40 Moderate persistent asthma, uncomplicated
CPT/HCPCS: 99214; G2211

== ENCOUNTER → 2024-10-02 10:59 | Outpatient (BNVA) | payer MEDICARE, OTHER, SELFPAY | PROVIDERS: PCP Family Medicine; Visit Provider Hospitalist | DX: J45.40 Moderate persistent asthma, uncomplicated (principal); G47.33 Obstructive sleep apnea (adult) (pediatric); Z99.89 Dependence on other enabling machines and devices; R91.8 Other nonspecific abnormal finding of lung field; K21.9 Gastro-esophageal reflux disease without esophagitis; J38.3 Other diseases of vocal cords; Z79.899 Other long term (current) drug therapy | CPT/HCPCS: 99212 ==

== ENCOUNTER 2024-12-01 07:46 | Outpatient (AMB) | payer MEDICARE, OTHER, SELFPAY ==
--- OUTSIDE RECORDS SUMMARY | 2024-12-01 07:48 | XMS_ITS | Clinical Summary ---
Author Organization [facility] Address [address] [place] [address] Phone Care Team Providers Care Klystrom Tube Tester Name Role Phone Alexis Ross MD Primary Care Provider + Social History Tobacco Use Types Packs/Day Years Used Date Smoking Tobacco: Never Assessed Education Answer Date Recorded Are you interested in more education? Not on ramesh e 09/12/2024 Are you concerned about learning? Not on file 09/12/2024 No 09/12/2024 No 09/12/2024 Digital Access Answer Date Recorded No 09/12/2024 No 09/12/2024 Reliable internet access at home? Not on file 09/12/2024 Device with a working camera? Not on file Sex and Gender Information Value Date Recorded Sex Assigned at Not on file Legal Sex Male 11:15 AM EST Gender Identity Not on file Sexual Orientation Not on file Plan of Treatment Upcoming Encounters Date Type Department Care Team (Late st Contact Info) Description 06/01/2025 8:00 AM EDT Office Visit [facility] [address] 9th [place] [address] Harpreet Montgomery MD [address] [place] [phone] [email or web address] Health Maintenance Due Date Last Done Comments Adult Td,Tdap Booster 1959 LIPID PANEL 1959 DEPRESSION SCREENING 1971 SMOKING Hx and SMOKELESS TOB ACCO SCREENING 1972 HEPATITIS C SCREENING 1977 HIV ONE-TIME SCREENING (18-6 5 YEARS) 1977 COLOGUARD 2004 COLONOSCOPY 2004 COLORECTAL CANCER SCREENING 2004 FIT TEST 2004 FOBT 2004 SIGMOIDOSCOPY 2004 VIRTUAL COLONOSCOPY 2004 PNEUMOCOCCAL VACCINES (50+ y ears) (1 of 1 - PCV) 2009 ZOSTER VACCINES (1 of 2) 2009 INFLUENZA VACCINE (#1) 2024 COVID-19 VACCINE (1 - 2023-2 5 season) 2024 RSV VACCINE (1 - 1-dose 75+ series) 2034 HEPATITIS A VACCINES Aged Out No long er eligible based on patient's age to complete this topic HIB VACCINES Aged Out No longer eligi ble based on patient's age to complete this topic MENINGOCOCCAL VACCINES (ACWY) Aged Out No longer eligible based on patient's age to complete this topic MENINGOCOCCAL VACCINES (B) Aged Out N o longer eligible based on patient's age to complete this topic Medical Devices Not on file Insurance MEDICARE PART A & B Member Subscriber Plan / Payer (Ef fective 2024-Present) Name:Wili Mcgarry Member ID:[id number] Relation to Subscriber:Self Name:Wili Mcgarry Subscriber ID:[id number] Payer ID:[id number] Group ID:Not on file Type:Medicare Address: [employer] [facility] [address] [place] [address] [facility] MEDIC[facility] PART A & B [facility] Address[facility] [id number] [place] [phone] MEDICARE PART A & B [facility] Address: [facility] [id number] [place] [phone] MEDICARE PART A & [place] [place] [address] [facility] Address: [facility] [id number] [place] [phone] MEDICARE PART A & B [facility] Address[facility] [id number] [place] [address] MEDICARE PART A & B [facility] Address: [id number] [place] [address] Care Teams K[employer] Tube Tester Relationship Specialty Start Date End Date Alexis Ross MD [address] [place] [phone] PCP - General Family Medicine 08/20/24 Additional Source Comments The information contained in this document represents components of the legal health record. It is not the complete legal health record.[facility]
[2024-12-01 07:57] VITALS: BP 132/82; RESP 16; O2SAT 98; BMI 28.0
--- NOTE | 2024-12-01 07:57 | MHC.OFFVIS ---
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: No Allergies No Known Allergies Allergy (Verified 10/02/24 11:18) Medication List - Last Reconciled 12/01/24 by Emilia Posadas CNP budesonide-formoterol 160-4.5 mcg/actuation (Symbicort) 2 puffs inhalation BID 30 days cholecalciferol (vitamin D3) PO DAILY gabapentin 300 mg PO TID ibuprofen 800 mg PO Q8H inhalational spacing device As directed lycopene 10 mg PO DAILY multivitamin 1 tab PO DAILY omega-3 fatty acids (Fish Oil) PO DAILY vit B mtjw-ole-mlsx-berberine 100-100 mg tabs PO HPI Comments Details: Wili is a 64-year-old male patient with a past medical history of anxiety, osteoarthritis, peripheral neuropathy, and GALLO on CPAP who was my patient while at [facility]. He is followed there for some time for ongoing left-sided headaches. He was treated initially by Dr. Gant in the past receiving left occipital nerve blocks and trigger point injections with potentially some worsening of pain. We have been using a combination of myofascial release, physical therapy, and muscle relaxers. We have gained some headway in the past however ongoing leak, it seems as though his left-sided headaches have been triggered by upper body muscle overuse. He has had some improvement in his symptoms with gabapentin dose currently at 400 mg 3 times daily. This was increased back in October from 300 mg 3 times daily. He believes that his headaches have worsened in the summer months a couple of years in a row provided that he had started doing some increased physical activity/workout exercises each time. He has a difficult time driving for long distances or doing activities that require repetitive motions. He notices that activities such as gardening and trigger his headaches. He has a difficult time walking long distances. He notices that when he is approaching 1 mi, he started to have headache. He can however go longer distances if he puts his left hand in his pocket and does not allow it to swing while he is walking. He also notes that turning his head repetitively can also trigger his headaches. His head pain is primarily to the left occipital area and radiates up the front of his head to the retro-orbital and temporal areas. Historically has not had any autonomic or migrainous symptoms associated with his headaches. Since starting on the higher dose of gabapentin, he has not had any of his headaches radiate to the retro-orbital or temporal areas but it does reside still in the left occipital area. Headaches currently are more manageable however he estimates that he has had a total of 11 headaches over the course of the last month. Each of these headaches can last several hours. Past medication trials: Cyclobenzaprine-initially some benefit though more recently no benefit Tizanidine-no benefit Gabapentin-does provide some level of pain relief. He is currently taking this Prior workup: 10/04/2024 MRI of the brain with without contrast: No intracranial mass or mass effect. Scattered small FLAIR bright foci within the supratentorial white matter unchanged. These are nonspecific, but are compatible with chronic microangiopathic/small-vessel ischemic change. 07/16/2022 MRI of the cervical spine: There is some chronic anterior wedging of the C7, Modic type 2 signal changes at C3 through 4, and C3 through 4 there is facet and uncovertebral joint spurring as well as moderate to severe bilateral neural foraminal stenosis. [facility] Medical History (Updated 12/01/24 @ 08:41 by Emilia Posadas CNP) Vitamin D deficiency Venous insufficiency of both lower extremities Swelling of lower leg Seborrheic keratoses Osteoarthritis Neuropathy of both feet Headache CMC arthritis Anxiety Angiolipoma Actinic keratosis Reactive airway disease Pulmonary nodules Vocal cord dysfunction GALLO on CPAP GERD (gastroesophageal reflux disease) Dyspnea Family History (Updated 12/01/24 @ 07:58 by Yohan Addison CMA) Mother Breast cancer Father Prostate cancer Social History (Updated 12/01/24 @ 07:58 by Yohan Addison CMA) Alcohol intake: former Patient Tobacco Use Status: Never used Tobacco Substance Use Type: Marijuana Review of Systems Const All systems reviewed & are unremarkable except as noted in HPI and below Physical Exam Vital Signs: Last Vital Signs Resp 16 12/01/24 07:57 BP 132/82 12/01/24 07:57 Pulse Ox 98 12/01/24 07:57 BMI result Body Mass Index 28.0 Const General: cooperative, healthy appearing, comfortable and no acute distress Nutritional Appearance: well nourished Orientation/consciousness: patient oriented x3 Limitations: no limitations HEENT Head: Yes normal to inspection and Yes normocephalic Eyes General: appearance normal, both eyes and all related structures Visual Capone: normal visual capone by confrontation Alignment and Position: alignment normal Periorbital: periorbital findings normal Eyelids: Yes eyelids normal Conjunctivae: conjunctivae normal Sclerae: sclerae normal Back/Spine/Pelvis Other: Left upper trapezius trigger points. Neuro General: patient oriented x3 Cranial nerves: Yes CN's II-XII intact bilaterally and Yes Facial sensation intact/muscles of mastication intact Cognition (Neuro): normal cognition Gait exam (Neuro): Normal gait present Motor exam (neuro): 5/5 motor strength present throughout and no tremor noted Sensory Exam: double simultaneous stimulation for sensation normal Romberg Test: Negative Pupils: Normal pupillary reactivity/response: bilateral Psych Appearance: grossly normal Mental Status: mental status grossly normal Speech and movement: Normal speech and movement present and Clear speech present Affect: normal affect Attitude: cooperative Thought process: Normal thought process present Thought content: Normal thought content present Insight: Good insight present (Psych) Judgement: Good judgement present (Psych) Office Procedures Therapeutic Injection Therapeutic Injection Details: Trigger point injection procedure: Laterally:Lft Indications: Chronic headaches, myofascial pain Following universal hygiene protocol, after explaining the risks and benefits as well as hazards of the procedure to the patient, consent was signed and placed in the chart. Time-out prior to starting the procedure was performed. The areas over the left upper trapezius muscle were cleansed with alcohol. 4 Sites in the left trapezius muscle injected with a 27 gauge 1.5 in needle with myofascial spasm. Patient tolerated the procedure well, localized bleeding was controlled. Patient monitored in the clinic for 15 minutes for complications. Patient was discharged home with instructions to apply ice to the back of their head as needed. 67891-Jrijbkr Point Injection 3 or more All charges added?: Procedure code (CPT) selection complete Office Meds bupivacaine (PF) 0.25 % (2.5 mg/mL) injection solution Performing Provider: Emilia Posadas CNP [place] [facility] [place] Administered by: Emilia Posadas CNP on 12/01/24 08:42 Dose Route Admin Location Dispensed Lot Number Expiration Date [facility] Blueprint Machine Operator 3 mL Infiltration 10 mL [id number] [employer] Total Dispensed Waste 10 mL 70 % Assessment & Plan Assessment & Plan (1) Left-sided headache: Code(s): R51.9 - Headache, unspecified Category: Medical Plan: . (2) Trigger point of left shoulder region: Code(s): M25.512 - Pain in left shoulder Category: Medical Plan: . (3) Myofascial pain: Code(s): M79.18 - Myalgia, other site Category: Medical Plan: . Plan Wili is a 64-year-old male patient with a past medical history of anxiety, osteoarthritis, peripheral neuropathy, and GALLO on CPAP who is here today to reestablish care at [facility] for treatment of his left-sided headaches. Based on history and physical exam, there was a strong myofascial component to his headaches. We have tried physical therapy, acupuncture, myofascial release techniques at home, he therapy, cyclobenzaprine, and tizanidine always only marginal benefit. He requested today to have trigger point injections performed which were done here in the office. He tolerated the procedure well without any complications. I will have him return in 1 month for repeat injections. In the meantime, we can try course of baclofen taken as needed at bedtime for additional measures. He can continue on the gabapentin 400 mg 3 times daily as he is tolerating this well. He does have some chronic degenerative changes to his cervical spine. Could in the future consider repeating his C-spine MRI to evaluate for any significant changes or causation for his headaches. -left trapezius trigger points performed in office today -continue gabapentin 400 mg 3 times daily -start a trial of baclofen 5 mg as needed at bedtime -discontinue cyclobenzaprine -continue myofascial release techniques at home -consider repeat C-spine MRI in the future Orders: Orders AMB Trigger Point Injection Today M25.512 - Pain in left shoulder, M79.18 - Myalgia, other site, R51.9 - Headache, unspecified Medications: New baclofen 5 mg PO BEDTIME PRN 30 tabs 3RF muscle spasm Coding Level of Care Code New Pt Level 4 (87228) Diagnoses Left-sided headache R51.9 Trigger point of left shoulder region M25.512 Myofascial pain M79.18 CPT Codes Therapeutic Injection - Ther Injection 2: 70430-Cpyrlph Point Injection 3 or more ([id number])
== END 2024-12-01 08:40 | disposition home or self-care (01) ==
LOC: HO.HSM 07:47
PROVIDERS: PCP Family Medicine; Visit Provider Nurse Practitioner
DX: M79.18 Myalgia, other site (principal); M25.512 Pain in left shoulder; R51.9 Headache, unspecified
CPT/HCPCS: 20553; 99214

== ENCOUNTER → 2024-12-01 07:46 | Outpatient (BNVA) | payer MEDICARE, OTHER, SELFPAY | PROVIDERS: PCP Family Medicine; Visit Provider Nurse Practitioner | DX: R51.9 Headache, unspecified (principal); M79.18 Myalgia, other site; M25.512 Pain in left shoulder | CPT/HCPCS: 20553; 99212; J0665 ==

== ENCOUNTER 2024-12-29 08:00 | Outpatient (AMB) | payer MEDICARE, OTHER, SELFPAY ==
--- NOTE | 2024-12-29 08:00 | MHC.OFFVIS ---
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 To review: He was treated initially by Dr. Gant in the past receiving left occipital nerve blocks and trigger point injections with potentially some worsening of pain. We have been using a combination of myofascial release, physical therapy, and muscle relaxers. We have gained some headway in the past however ongoing leak, it seems as though his left-sided headaches have been triggered by upper body muscle overuse. He has had some improvement in his symptoms with gabapentin dose currently at 400 mg 3 times daily. This was increased back in October from 300 mg 3 times daily. He believes that his headaches have worsened in the summer months a couple of years in a row provided that he had started doing some increased physical activity/workout exercises each time. He has a difficult time driving for long distances or doing activities that require repetitive motions. He notices that activities such as gardening and trigger his headaches. He has a difficult time walking long distances. He notices that when he is approaching 1 mi, he started to have headache. He can however go longer distances if he puts his left hand in his pocket and does not allow it to swing while he is walking. He also notes that turning his head repetitively can also trigger his headaches. His head pain is primarily to the left occipital area and radiates up the front of his head to the retro-orbital and temporal areas. Historically has not had any autonomic or migrainous symptoms associated with his headaches. Since starting on the higher dose of gabapentin, he has not had any of his headaches radiate to the retro-orbital or temporal areas but it does reside still in the left occipital area. Headaches currently are more manageable however he estimates that he has had a total of 11 headaches over the course of the last month. Each of these headaches can last several hours . At the time of his last visit we performed trigger point injections and I started him on a trial of baclofen in addition to his gabapentin. He tells me today that he had 11 headaches over the last month though they were more mild compared to the month prior. He has less retroorbital pain than he has had in the past. He was also able to drive longer distances than he has in the past. He took a walk during the last month and still notes that around the 1 mile hawa he again developed a headache though again it was less severe than previous. He did trial the baclofen. He tolerates it well with less sedation compared to other muscle relaxant agents. He does not believe that it is substantially helpful though. Past medication trials: Cyclobenzaprine-initially some benefit though more recently no benefit Tizanidine-no benefit Gabapentin-does provide some level of pain relief. He is currently taking this Prior workup: 10/04/2024 MRI of the brain with without contrast: No intracranial mass or mass effect. Scattered small FLAIR bright foci within the supratentorial white matter unchanged. These are nonspecific, but are compatible with chronic microangiopathic/small-vessel ischemic change. 07/16/2022 MRI of the cervical spine: There is some chronic anterior wedging of the C7, Modic type 2 signal changes at C3 through 4, and C3 through 4 there is facet and uncovertebral joint spurring as well as moderate to severe bilateral neural foraminal stenosis. [facility] Medical History (Updated 12/01/24 @ 08:41 by Emilia Posadas CNP) Vitamin D deficiency Venous insufficiency of both lower extremities Swelling of lower leg Seborrheic keratoses Osteoarthritis Neuropathy of both feet Headache CMC arthritis Anxiety Angiolipoma Actinic keratosis Reactive airway disease Pulmonary nodules Vocal cord dysfunction GALLO on CPAP GERD (gastroesophageal reflux disease) Dyspnea Family History (Updated 12/01/24 @ 07:58 by Yohan Addison CMA) Mother Breast cancer Father Prostate cancer Social History (Updated 12/01/24 @ 07:58 by Yohan Addison CMA) Alcohol intake: former Patient Tobacco Use Status: Never used Tobacco Substance Use Type: Marijuana Review of Systems Const All systems reviewed & are unremarkable except as noted in HPI and below Physical Exam Const General: cooperative, healthy appearing, comfortable and no acute distress Nutritional Appearance: well nourished Orientation/consciousness: patient oriented x3 Limitations: no limitations HEENT Head: Yes normal to inspection and Yes normocephalic Eyes General: appearance normal, both eyes and all related structures Visual Capone: normal visual capone by confrontation Alignment and Position: alignment normal Periorbital: periorbital findings normal Eyelids: Yes eyelids normal Conjunctivae: conjunctivae normal Sclerae: sclerae normal Back/Spine/Pelvis Other: Left upper trapezius trigger points. Neuro General: patient oriented x3 Cranial nerves: Yes CN's II-XII intact bilaterally and Yes Facial sensation intact/muscles of mastication intact Cognition (Neuro): normal cognition Gait exam (Neuro): Normal gait present Motor exam (neuro): 5/5 motor strength present throughout and no tremor noted Sensory Exam: double simultaneous stimulation for sensation normal Romberg Test: Negative Pupils: Normal pupillary reactivity/response: bilateral Psych Appearance: grossly normal Mental Status: mental status grossly normal Speech and movement: Normal speech and movement present and Clear speech present Affect: normal affect Attitude: cooperative Thought process: Normal thought process present Thought content: Normal thought content present Insight: Good insight present (Psych) Judgement: Good judgement present (Psych) Office Procedures Therapeutic Injection Therapeutic Injection Details: Trigger point injection procedure: Laterally:Left Indications: Chronic headaches, myofascial pain Following universal hygiene protocol, after explaining the risks and benefits as well as hazards of the procedure to the patient, consent was signed and placed in the chart. Time-out prior to starting the procedure was performed. The areas over the left trapezius muscle were cleansed with alcohol. 3 Sites in the left trapezius muscle injected with a 27 gauge 1.5 in needle with myofascial spasm. Patient tolerated the procedure well, localized bleeding was controlled. Patient monitored in the clinic for 15 minutes for complications. Patient was discharged home with instructions to apply ice to the back of their head as needed. [id number]-Ejicsog Point Injection 3 or more All charges added?: Procedure code (CPT) selection complete Office Meds bupivacaine (PF) 0.5 % (5 mg/mL) injection solution Performing Provider: Emilia Posadas CNP [place] [facility] [place] Administered by: Emilia Posadas CNP on 12/29/24 08:33 Dose Route Admin Location Dispensed Lot Number Expiration Date [facility] Residence Hall Director 3 mL Infiltration 10 mL [id number] [employer] Total Dispensed Waste 10 mL 70 % Assessment & Plan Assessment & Plan (1) Left-sided headache: Code(s): R51.9 - Headache, unspecified Category: Medical Plan: . (2) Trigger point of left shoulder region: Code(s): M25.512 - Pain in left shoulder Category: Medical Plan: . (3) Myofascial pain: Code(s): M79.18 - Myalgia, other site Category: Medical Plan: . Plan Wili is a 64-year-old male patient with a past medical history of anxiety, osteoarthritis, peripheral neuropathy, and GALLO on CPAP who is here today for a follow-up after last visit when we performed left sided trigger point injections. During last visit we also trialed a course of baclofen taken as needed at bedtime for additional measures in addition to his gabapentin. He has seen some improvements over the last month. We again today performed trigger point injections and he will continue the baclofen. He would like to try and go 2 months this time and see how he does. He will call sooner if needed. He does have some chronic degenerative changes to his cervical spine. Could in the future consider repeating his C-spine MRI to evaluate for any significant changes or causation for his headaches. -left trapezius trigger points performed in office today -continue gabapentin 400 mg 3 times daily -continue baclofen 5 mg as needed at bedtime -continue myofascial release techniques at home -consider repeat C-spine MRI in the future if there is lack of progress Orders: Orders AMB Trigger Point Injection Today M25.512 - Pain in left shoulder, M79.18 - Myalgia, other site, R51.9 - Headache, unspecified Coding Level of Care Code Est Pt Level 2 (69434) Diagnoses Left-sided headache R51.9 Trigger point of left shoulder region M25.512 Myofascial pain M79.18 CPT Codes Therapeutic Injection - Ther Injection 2: 91846-Uctjxhv Point Injection 3 or more ([id number])
--- OUTSIDE RECORDS SUMMARY | 2024-12-29 08:04 | XMS_ITS | Data Portability ---
Author Organization [place] - [facility], Allergy Address [address] [address] Care Team Providers Care Alterations Expert Name Role Phone MIGUEL BUENROSTRO Primary Care Provider [phone] Assessment Encounter Date Assessment Date Assessment LastModified by Organization Details LastModified Time 12/08/2024 12/08/2024 64yo male with history of right-sided sudden SNHL in 2018 presents for evaluation of the ears. Left cerumen impaction removed without difficulty. The left ear canal has three small exostoses, otherwise benign. Reassured the patient there is no obvious moisture or otorrhea in the ear canal. TMs are normal to inspection. Recommend trial of distilled white vinegar 1-2 times weekly to prevent moisture collection. [facility] and [facility]ometric testing as needed. [email or web address] Not available 12/08/2024 14:55:09 Plan of Treatment Reminders Order Date Submit Date Provider Last Modified By Organization Details Last Modified Time Details Appointments None record ed. Lab None record ed. Referral None record ed. Procedures None record ed. Surgeries None record ed. Imaging None record ed. Medication Orders None record ed. Patient TargetsNo targets recorded. Patient InstructionsNo instructions recorded. Reason for Referral None Reported. Problems Name Problem SNOMED Code Status Onset Date Resolution Date Notes Provider Name and Address Organization Details Recorded Time Sensorine ural hearing loss of bilateral ears 940368377 Active 2017 Sensorine ural hearing loss, bilateral ; Note: Date Diagnosed : 05/31/2017 9:35 AM (H90.3) LUIS FELIPE GASPAR PA-C 100 [facility] 100, [facility] [place], [address] , [place] - [facility] 10/06/202 5 14:55:20 Disorder of right Eustachia n tube 11388440074 58947 Active 2017 Other specified disorders of Eustachia n tube, right ear; Note: Date Diagnosed : 05/31/2017 9:35 AM (H69.81) Not Available [facility] 4 02:16:30 Tinnitus of right ear 68254305942 08 Active 2017 Tinnitus, right ear; Note: Date Diagnosed : 05/31/2017 10:11 AM (H93.11) Not Available [facility] 4 02:15:51 Sudden idiopathi c hearing loss 550115999 Active 2017 Sudden idiopathi c hearing loss, right ear; Note: Date Diagnosed : 05/31/2017 10:12 AM (H91.21) Not Available [facility] 4 02:16:27 Impacted cerumen in left ear 54962409537 87007 Active 2024 LUIS FELIPE GASPAR PA-C [address] [place] [address], [place], [address] , [facility] 5 14:55:13 Problem Notes None recorded. Procedures Surgical History Date Name Laterality Status Provider Name and Address Organization Details Recorded Time 5 Cerumen removal without microscope left completed LUIS FELIPE GASPAR PA-C [address] [place] [address],[place] [address], [place], [address], [facility] 12/08/2024 14:50:34 vasectomy completed STEPHANIE Mata r [facility] 12/08/2024 14:32:26 Imaging Results None recorded. Procedure Notes None recorded. Medical Equipment None Reported. Allergies No known drug allergies Medications Name Sig Start Date Stop Date Status Note LastModified by Organization Details LastModified Time cyclobenz aprine 10 mg tablet TAKE 1 TABLET BY MOUTH DAILY NEEDED FOR NECK/JESSICA ULDER SPASM 12/08 completed Not Available Not Available Not Available prednison e 10 mg tablet PLEASE SEE ATTACHED FOR DETAILED DIRECTIO NS 12/08 completed Not Available Not Available Not Available doxycycli ne hyclate 100 mg capsule TAKE 1 CAP BY MOUTH 2X/DAY X5 DAYS W/ FLUIDS & MAY TAKE W/ FOOD TO MINIMIZE ABDOMINA L DISCOMFO RT 12/08 completed Not Available Not Available Not Available tizanidin e 4 mg tablet TAKE 1 TABLET BY MOUTH EVERYDAY AT BEDTIME active Not Available Not Available No t Available pimecroli mus 1 % topical cream APPLY TO AFFECTED AREAS OF ECZEMA ON THE FACE TWICE DAILY NEEDED. active Not Available Not Available No t Available gabapenti n 100 mg capsule TAKE 4 CAPSULES BY MOUTH 3 TIMES A DAY active Not Available Not Available No t Available fluticaso ne propionat e 50 mcg/actua tion nasal spray,vin pension 2017 active Medicati on ID: [id number] D uration Value: 30 Brand Name: fluticas one Send Method: E-Prescr ibed Sub s Allowed: subs OK Speci al Instruct ion: SPRAY EACH NOSTRIL 2 TIMES A DAY UNTIL SYMPTOMS IMPROVE Medicati onGeneri cName: fluticas one Not Available Not Available Not Available budesonid e-formote rol HFA 160 mcg-4.5 mcg/actua tion aerosol inhaler TAKE 2 PUFFS BY MOUTH TWICE A DAY active Not Available Not Available No t Available Lotemax 0.5 % eye ointment APPLY 1/2 INCH RIBBON TO AFFECTED EYELIDS ON BOTH EYES FOUR TIMES DAILY active Not Available Not Available No t Available OptiChamb er Layne [facility] spacer USE DIRECTED WITH INHALER active Not Available Not Available No t Available baclofen 5 mg tablet TAKE 1 TABLET ORALLY BEDTIME NEEDED FOR MUSCLE SPASM active Not Available Not Available No t Available Vitals Date Recorded Body height Body mass index (BMI) Body weight Provider Name and Address Organization Details Last Updated DateTime 12/08/2024 185.42 cm 28.2 kg/m2 63437.77 g STEPHANIE HERNANDEZ [place] - [facility] 12/08/2024 14:30:55 Social History None recorded. Functional Status None recorded. Mental Status None recorded. Family History Nothing Reported. Medical History Condition Response Arthritis Y Headaches Y Past Encounters Encounter ID Performer Location Encounter Start Date Encounter Closed Date Diagnosis/Indication Diagnosis SNOMED-CT Code Diagnosis ICD10 Code Diagnosis IMO Codes Diagnosis Note [id number] LUIS FELIPE GASPAR PA-C [facility] [address] [place] [address] 12/08/2024 14:22:43 12/08/2024 14:39:35 Impacted cerumen in left ear [id number] 676670 H61.22 2294871 Sensorineu ral hearing loss of bilateral ears 129613847 H90.3 Health Concerns Section Related Observation LastModified by Organization Detai ls LastModified Time None Recorded Concern Status LastModified by Organization Details LastModified Time None Recorded Advance Directives Directive None Recorded Payers Insurance Date Sequence Insurance Name Policy Number Policy Ortiz Covered Member ID Ortiz Member ID Guarantor Name 12/08/2024 1 [place]IC[place] B-[place]: [employer] Wili Mcgarry [id number] Wili Mcgarry 12/08/2024 2 FOR LIFE ( - MEDICARE SUPPLEMENT) Wili Mcgarry [id number] Wili Mcgarry Notes Date Note Type Note Provider Name and Address Organization Details Recorded Time 12/08/2024 text/html ROS as noted in the HPI 64yo male with history of right-sided sudden SNHL in 2018 presents for evaluation of the ears. He is here for routine cerumen removal. He reports clear moisture from both ears for the past 8 years. Denies associated pain or hearing changes. He [facility], who also monitors his hearing loss. PV TM 2018: History of sudden right sided sensorineural hearing loss in 2018 status post oral prednisone regimen. Patient was not interested in IT Dex injections. He was recommended amplification. MRI of the IACs recommended, unable to find result LUIS FELIPE GASPAR PA-C [address] [place] [address], [place], [address], [facility] - [facility] 12/08/2024 14:55:47
--- OUTSIDE RECORDS SUMMARY | 2024-12-29 08:05 | XMS_ITS | Clinical Summary ---
Author Organization [facility] Address [address] [place] [address] Phone Care Team Providers Care Box Coverer Hand Name Role Phone Alexis Ross MD Primary [...] Description 06/01/2025 8:00 AM EDT Office Visit [facility] [address] [facility] 9th [place] [address] Harpreet Montgomery MD [address] [place] [phone] [email or web address] [place]PENDING SALE TO [facility] Health Maintenance Due Date Last Done Comments [...] VACCINE (#1) 2024 COVID-19 VACCINE (1 - 2024-2 6 season) 2024 RSV VACCINE (1 - 1-dose [...] file Insurance MEDICARE PART A & B [facility] MEDICARE PART A & B [facility] [facility] [place] Address: [facility] [id number] [place] [phone] MEDICARE PART A & B [facility] [place] [facility] [place] Address: [facility] [id number] [place] [phone] MEDICARE PART A & [place] [address] [facility] [place] Address: [facility] [id number] [place] [phone] MEDICARE PART A & B [facility] [place] [facility] [place] Address: [facility] [address] [place] [address] MEDICARE PART A & B [facility] [place] [facility] [place] Address: [id number] [place] [address] Care Teams Box Coverer Hand Relationship Specialty Start Date End Date Alexis Ross MD [address] [place] [id number] PCP - General Family Medicine 08/20/24 Additional Source Comments The information contained in this document represents components of the legal health record. It is not the complete legal health record.[facility]
[2024-12-29 08:08] VITALS: BP 132/86; RESP 16; BMI 28.0
== END 2024-12-29 08:30 | disposition home or self-care (01) ==
LOC: HO.HSM 08:01
PROVIDERS: PCP Family Medicine; Visit Provider Nurse Practitioner
DX: M79.18 Myalgia, other site (principal); M25.512 Pain in left shoulder; R51.9 Headache, unspecified
CPT/HCPCS: 20553

== ENCOUNTER → 2024-12-29 08:00 | Outpatient (BNVA) | payer MEDICARE, OTHER, SELFPAY | PROVIDERS: PCP Family Medicine; Visit Provider Nurse Practitioner | DX: M79.18 Myalgia, other site (principal) | CPT/HCPCS: 20553; J0665 ==

== ENCOUNTER 2025-01-27 13:56 | Outpatient (AMB) | payer MEDICARE, OTHER, SELFPAY ==
[2025-01-27 14:19] VITALS: BP 120/60; PULSE 65; O2SAT 95; BMI 28.3
--- NOTE | 2025-01-27 14:19 | MHC.OFFVIS ---
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 Initially started in 2021. started developing some difficulty inhaling in. Feel like he could not get a deep breath in. Moderate severity. The symptoms come and go, and currently feeling well. Tried inhalers without any significant improvement. Part of the workup he also did have a CT scan of the chest. Actually demonstrated multiple pulmonary nodules largest 1 measuring 7 mm in size. It was followed for some time without any significant changes although the nodules are intermediate in size. Patient subsequently had undergone Pulmonary function studies. The flow volume loop Appearance and plateauing of the flows in 1 of the flows during the inspiratory phase. This suggests the possibility of a dynamic extrathoracic airway resistance or obstruction. He does have a history of sleep apnea so therefore it could be redundant tissue although most likely related to vocal cord dysfunction. At this point will have him repeat the CT scan to follow-up with the pulmonary nodules since he has been more than a year and also should undergo speech therapy to give him good recommendations in order to work with underlying vocal cord dysfunction and laryngeal spasms current the patient is feeling better so therefore no further interventions required at this time. Will follow-up after the studies in 33 minutes. He has not issues prior to this he will call for an earlier assessment. 10/02/2024 the patient is here for a pulmonary follow-up visit. He actually been feeling well until recently we started developing some heaviness and pressure in the anterior chest area. Primarily when taking a deep breath in. Initially was moderate in amount in his subsided to some. He still feels it on deep inhalation. He also has a had a cough. He did have a CT scan of the chest which I personally reviewed demonstrating no evidence of any airway disease. He does have some stable pulmonary nodules that have been stable for many years so therefore no additional serial imaging studies warranted. He is still waiting to hear back from speech pathology regarding the speech therapy for the vocal cord dysfunction. In addition to that he does have some wheezing on exam. He has tried albuterol in the past without any significant improvement. Will try him on Symbicort at this time he will use a spacer. He also knows to rinse and gargle. If he continues to be symptomatic we can consider also doing a methacholine challenge and blood work to assess for hyperreactive will hypersensitivity reactions. 01/27/2025 the patient is here for pulmonary follow-up visit. Overall he is feeling about the same. Still feeling that pressure sensation. But also having significant spasms of his neck area with headaches and also spasms of the back including the chest area. He feels that when he stretches his back out he feels like he can breathe a little better. Almost like if some muscle spasms. He does respond well to the gabapentin. He is currently taking it 3 times a day. At times he responded well to Flexeril. I was not prescription he can then follow-up with his primary care about that. In the meantime the patient did try the Symbicort that was not helpful. Therefore he stopped it. In light this point because of the spasms I would refrain from having him use it further. The patient has not heard from speech therapy regarding the possibility of vocal cord dysfunction. At this point will hold off on that and send him to ENT so they can do a laryngoscopy with probe study and assess his vocal cords further. Then from there he can be sent to speech therapy. The patient also would benefit from getting a methacholine challenge to better address the diagnosis of reactive airways into see the need for inhaled therapy specially with his wheezing during the last visit. [facility] Medical History (Updated 01/27/25 @ 21:49 by Ilya Sheikh MD) Muscle spasm Vitamin D deficiency Venous insufficiency of both lower extremities Swelling of lower leg Seborrheic keratoses Osteoarthritis Neuropathy of both feet Headache CMC arthritis Anxiety Angiolipoma Actinic keratosis Reactive airway disease Pulmonary nodules Vocal cord dysfunction GALLO on CPAP GERD (gastroesophageal reflux disease) Dyspnea Family History (Updated 12/01/24 @ 07:58 by Yohan Addison CMA) Mother Breast cancer Father Prostate cancer Social History Alcohol intake: former Patient Tobacco Use Status: Never used Tobacco Substance Use Type: Marijuana Review of Systems Const Denies fatigue ENT Reports no additional complaints Card Denies chest pain and Reports dyspnea Resp Reports cough and Reports dyspnea GI Reports dyspepsia and Reports heartburn Musc Reports no additional complaints Skin/Breast Denies rash Neuro Reports no additional complaints Endo Denies fatigue Physical Exam Vital Signs: Last Vital Signs Pulse 65 01/27/25 14:19 BP 120/60 01/27/25 14:19 Pulse Ox 95 01/27/25 14:19 Oxygen Delivery Method Room Air 01/27/25 14:19 BMI result Body Mass Index 28.3 Const General: comfortable HEENT Head: Yes normocephalic Neck Neck: Yes supple Chest Chest palpation & inspection: normal inspection of the chest Resp Effort & Inspection: normal respiratory effort Auscultation: no wheezes and diminished lung sounds Cardio Heart sounds: S1 normal heart sound present and S2 normal heart sound present GI Palpation (GI): Soft to palpation Skin General skin exam: no rashes or lesions noted Extrem General: Yes no clubbing, cyanosis or edema Assessment & Plan Assessment & Plan (1) Dyspnea: Code(s): R06.00 - Dyspnea, unspecified Category: Medical Qualifiers: Dyspnea type: shortness of breath Qualified Code(s): R06.02 - Shortness of breath (2) GERD (gastroesophageal reflux disease): Code(s): K21.9 - Gastro-esophageal reflux disease without esophagitis Category: Medical Qualifiers: Esophagitis presence: without esophagitis Qualified Code(s): K21.9 - Gastro-esophageal reflux disease without esophagitis (3) GALLO on CPAP: Code(s): G47.33 - Obstructive sleep apnea (adult) (pediatric) Category: Medical (4) Vocal cord dysfunction: Comment: based on FVL Code(s): J38.3 - Other diseases of vocal cords Category: Medical (5) Pulmonary nodules: Comment: largest 7mm in size Code(s): R91.8 - Other nonspecific abnormal finding of lung field Category: Medical (6) Reactive airway disease: Code(s): J45.909 - Unspecified asthma, uncomplicated Category: Medical Qualifiers: Asthma complication type: uncomplicated Asthma persistence: persistent Asthma severity: moderate Qualified Code(s): J45.40 - Moderate persistent asthma, uncomplicated (7) Muscle spasm: Code(s): M62.838 - Other muscle spasm Category: Medical Plan Repeat CT chest stable stop Symbicort with spacer ENT referral for lyryngoscopy and probe reflux diet sleep with HOB elevated continue APAP MEDHAT Flexeril as needed F/U 3-4 months Orders: Orders RT pft w methacholine 2 Months J45.40 - Moderate persistent asthma, uncomplicated Referrals Ear/Nose/Throat Referral J38.3 - Other diseases of vocal cords Medications: New cyclobenzaprine 5 mg PO TID PRN 45 tabs 0RF muscle spasm 15 days Coding Level of Care Code Complex visit Add On G2211 Diagnoses Shortness of breath R06.02 Dyspnea type: shortness of breath Gastroesophageal reflux disease without esophagitis K21.9 Esophagitis presence: without esophagitis GALLO on CPAP G47.33 Vocal cord dysfunction J38.3 Pulmonary nodules R91.8 Moderate persistent reactive airway disease without complication J45.40 Asthma complication type: uncomplicated Asthma persistence: persistent Asthma severity: moderate Muscle spasm M62.838 Time Spent (min) 17
--- OUTSIDE RECORDS SUMMARY | 2025-01-27 17:50 | XMS_ITS | Continuity of Care Document ---
Author Organization [place] - [facility], [facility] Address [address] [place] [address] Care Team Providers Care Job Training Supervisor Name Role Phone MIGUEL BUENROSTRO Primary Care Provider Assessment Encounter Date Assessment Date Assessment LastModified [...] adjustments and serial audiometric testing as needed. [email or web address] Not available 12/08/2024 14:55:09 Plan of Treatment [...] Sensorine ural hearing loss of bilateral ears 081130753 Active 2017 Sensorine ural hearing loss, bilateral ; Note: Date Diagnosed : 05/31/2017 9:35 AM (H90.3) LUIS FELIPE GASPAR PA-C [address] [place] [address], [facility] [place], [address] , [place] - [facility] [place] [address] 5 14:55:20 Disorder of right Eustachia n tube 07172957302 56849 Active 2017 Other specified disorders of Eustachia n tube, right ear; Note: Date Diagnosed : 05/31/2017 9:35 AM (H69.81) Not Available [facility] 4 02:16:30 Tinnitus of right ear 43798360625 08 Active 2017 Tinnitus, right ear; Note: Date Diagnosed : 05/31/2017 10:11 AM (H93.11) Not Available [facility] 4 02:15:51 Sudden idiopathi c hearing loss 347753120 Active 2017 Sudden idiopathi c hearing loss, right ear; Note: Date Diagnosed : 05/31/2017 10:12 AM (H91.21) Not Available [facility] 4 02:16:27 Impacted cerumen in left ear 15067492839 89666 Active 2024 LUIS FELIPE GASPAR PA-C [address] [place] [address],[place] [address], [place], [address] , [place] - [facility] 5 14:55:13 Problem Notes None recorded. Procedures Surgical History Date Name Laterality Status Provider Name and Address Organization Details Recorded Time 5 Cerumen removal without microscope left completed LUIS FELIPE GASPAR PA-C [address] [place] [address],[place] [address], [place], [address], [place] - [facility] 12/08/2024 14:50:34 vasectomy completed STEPHANIE Mata r [facility] 12/08/2024 14:32:26 Imaging Results None recorded. [...] spray,vin pension 2017 active Medicati on ID: [id number] D uration Value: 30 Brand Name: fluticas [...] Available No t Available OptiChamb er Layne [facility] spacer USE DIRECTED WITH INHALER active Not Available Not Available No t Available baclofen 5 mg tablet TAKE 1 TABLET ORALLY BEDTIME NEEDED FOR MUSCLE SPASM active Not Available Not Available No t Available Vitals Date Recorded Body height Body mass index (BMI) Body weight Provider Name and Address Organization Details Last Updated DateTime 12/08/2024 185.42 cm 28.2 kg/m2 98490.77 g STEPHANIE HERNANDEZ [place] - [facility] 12/08/2024 14:30:55 Social History None recorded. Functional Status None recorded. Mental Status None recorded. Family History Nothing Reported. Medical History Condition Response Arthritis Y Headaches Y Past Encounters Encounter ID Performer Location Encounter Start Date Encounter Closed Date Diagnosis/Indication Diagnosis SNOMED-CT Code Diagnosis ICD10 Code Diagnosis IMO Codes Diagnosis Note [id number] LUIS FELIPE GASPAR PA-C [facility] [address] [place] [address] 12/08/2024 14:22:43 12/08/2024 14:39:35 Impacted cerumen in left ear 4735330306 107636 H61.22 2146628 Sensorineu ral hearing loss of bilateral ears 920356579 H90.3 Health Concerns Section Related Observation LastModified by Organization Detai ls LastModified Time None Recorded Concern Status LastModified by Organization Details LastModified Time None Recorded Payers Encounter Date Sequence Insurance Name Policy Number Policy Ortzi Covered Member ID Ortiz Member ID Guarantor Name 12/08/2024 1 [place] B-[place] [employer] Wili Mcgarry [id number] Wili Mcgarry 12/08/2024 2 FOR LIFE ( - MEDICARE SUPPLEMENT) Wili Mcgarry [id number] Wili Mcgarry Notes Date Note Type Note [...] to find result LUIS FELIPE GASPAR PA-C [address] [place] [address],[place] [address], [place], [address], [facility] - [facility] 12/08/2024 14:55:47
--- OUTSIDE RECORDS SUMMARY | 2025-01-27 17:50 | XMS_ITS | Clinical Summary ---
Author Organization [facility] Address [address] [facility] [address] [place] [address] Phone Care Team Providers Care Cancer Program Coordinator Name Role Phone Alexis Ross MD Primary [...] Description 06/01/2025 8:00 AM EDT Office Visit [facility] [address] [facility] 9th [place] [address] Harpreet Montgomery MD [address] [place] [id number] [email or web address] [email or web address] Health Maintenance Due [...] file Insurance MEDICARE PART A & B [facility] MEDICARE PART A & B [facility] [place]: [facility] [id number] [place] [phone] MEDICARE PART A & B [facility] [place]: [facility] [id number] [place] [phone] MEDICARE PART A & [place] [address] [facility] [place]: [facility] [id number] [place] [phone] MEDICARE PART A & B [facility] Address[facility] [id number] [place] [address] MEDICARE PART A & B [facility] Address: [id number] [place] [address] Care Teams Cancer Program Coordinator Relationship Specialty Start Date End Date Alexis Ross MD [address] [place] [address] PCP - General Family Medicine 08/20/24 Additional Source Comments The information contained in this document represents components of the legal health record. It is not the complete legal health record.[facility]
--- OUTSIDE RECORDS SUMMARY | 2025-01-27 17:50 | XMS_ITS | Data Portability ---
Author Organization [place] [facility], Allergy Address [address] [address] Care Team Providers Care Automotive Machinist Name Role Phone MIGUEL BUENROSTRO Primary Care [...] Sensorine ural hearing loss of bilateral ears [id number] Active 2017 Sensorine ural hearing loss, bilateral ; Note: Date Diagnosed : 05/31/2017 9:35 AM (H90.3) LUIS FELIPE GASPAR PA-C 100 [facility] 100, [facility] [place], [address] , [place] [facility] 10/06/202 5 14:55:20 Disorder of right Eustachia n tube [id number] 55498 Active 2017 Other specified disorders of Eustachia n tube, right ear; Note: Date Diagnosed : 05/31/2017 9:35 AM (H69.81) Not Available Replaced by [facility] 4 02:16:30 Tinnitus of right ear [id number] 08 Active 2017 Tinnitus, right ear; Note: Date Diagnosed : 05/31/2017 10:11 AM (H93.11) Not Available Replaced by [facility] 4 02:15:51 Sudden idiopathi c hearing loss 824494485 Active 2017 Sudden idiopathi c hearing loss, right ear; Note: Date Diagnosed : 05/31/2017 10:12 AM (H91.21) Not Available Replaced by [facility] 4 02:16:27 Impacted cerumen in left ear [id number] 47086 Active 2024 LUIS FELIPE GASPAR PA-C [address] [place] [address], [place], [address] , [facility] 5 14:55:13 Problem Notes None recorded. Procedures Surgical History Date Name Laterality Status Provider Name and Address Organization Details Recorded Time 5 Cerumen removal without microscope left completed LUIS FELIPE GASPAR PA-C [address] [place] [address],[place] [address], [place], [address], [facility] 12/08/2024 14:50:34 vasectomy completed STEPHANIE Mata r [facility] 12/08/2024 14:32:26 Imaging Results None recorded. [...] spray,vin pension 2017 active Medicati on ID: [id number] D uration Value: 30 Brand Name: fluticas [...] Available No t Available OptiChamb er Layne [facility] spacer USE DIRECTED WITH INHALER active Not Available Not Available No t Available baclofen 5 mg tablet TAKE 1 TABLET ORALLY BEDTIME NEEDED FOR MUSCLE SPASM active Not Available Not Available No t Available Vitals Date Recorded Body height Body mass index (BMI) Body weight Provider Name and Address Organization Details Last Updated DateTime 12/08/2024 185.42 cm 28.2 kg/m2 52166.77 g STEPHANIE HERNANDEZ [place] - [facility] 12/08/2024 14:30:55 Social History None recorded. Functional Status None recorded. Mental Status None recorded. Family History Nothing Reported. Medical History Condition Response Arthritis Y Headaches Y Past Encounters Encounter ID Performer Location Encounter Start Date Encounter Closed Date Diagnosis/Indication Diagnosis SNOMED-CT Code Diagnosis ICD10 Code Diagnosis IMO Codes Diagnosis Note [id number] LUIS FELIPE GASPAR PA-C [facility] [address] [place] [address] 12/08/2024 14:22:43 12/08/2024 14:39:35 Impacted cerumen in left ear [id number] 673343 H61.22 [id number] Sensorineu ral hearing loss of bilateral ears [id number] H90.3 Health Concerns Section Related Observation LastModified by Organization Detai ls LastModified Time None Recorded Concern Status LastModified by Organization Details LastModified Time None Recorded Advance Directives Directive None Recorded Payers Insurance Date Sequence Insurance Name Policy Number Policy Ortiz Covered Member ID Ortiz Member ID Guarantor Name 12/08/2024 1 [place] [employer] Wili Mcgarry [id number] Wili Mcgarry 12/08/2024 2 FOR LIFE ( - MEDICARE SUPPLEMENT) Wili Mcgarry [id number] Wili Mcgarry Notes Date Note Type Note [...] recommended, unable to find result LUIS FELIPE GAPSAR PA-C [address] [place] [address], [place], [address], [facility] - [facility] 12/08/2024 14:55:47
== END 2025-01-27 15:04 | disposition home or self-care (01) ==
LOC: HO.HPS 13:56
PROVIDERS: PCP Family Medicine; Visit Provider Hospitalist
DX: R06.02 Shortness of breath (principal); K21.9 Gastro-esophageal reflux disease without esophagitis; G47.33 Obstructive sleep apnea (adult) (pediatric); J38.3 Other diseases of vocal cords; R91.8 Other nonspecific abnormal finding of lung field; J45.40 Moderate persistent asthma, uncomplicated; M62.838 Other muscle spasm
CPT/HCPCS: 99213; G2211

== ENCOUNTER → 2025-01-27 13:56 | Outpatient (BNVA) | payer MEDICARE, OTHER, SELFPAY | PROVIDERS: PCP Family Medicine; Visit Provider Hospitalist | DX: R06.02 Shortness of breath (principal); K21.9 Gastro-esophageal reflux disease without esophagitis; G47.33 Obstructive sleep apnea (adult) (pediatric); J38.3 Other diseases of vocal cords; R91.8 Other nonspecific abnormal finding of lung field; J45.40 Moderate persistent asthma, uncomplicated; M62.838 Other muscle spasm | CPT/HCPCS: 99212 ==

== ENCOUNTER 2025-02-10 13:45 | Outpatient (REF) | payer MEDICARE, OTHER, SELFPAY ==
--- NOTE | ~2025-02-10 | XR_ITS ---
EXAMINATION: XR CHEST CLINICAL INFORMATION: R06.02 - Shortness of breath COMPARISON: None available. TECHNIQUE: 2 views of the chest were obtained. FINDINGS: The cardiac, hilar, and mediastinal contours are normal. Lungs are diffusely hyperaerated with flattened hemidiaphragms, suggestive of COPD. Lungs otherwise clear. There is no pneumothorax or pleural effusion. There is no focal osseous or soft tissue abnormality. XR/XR chest 2V IMPRESSION: COPD. No active superimposed disease. Electronically signed by: Elliott Billings MD 02/10/2025 02:09 PM JACKIE DODGE
== END 2025-02-10 13:46 | disposition home or self-care (01) ==
LOC: HO.XRAY 13:45
PROVIDERS: PCP Family Medicine; Visit Provider Hospitalist
DX: R06.02 Shortness of breath (principal)
CPT/HCPCS: 71046

== ENCOUNTER → 2025-02-10 13:52 | Outpatient (BNV) | payer MEDICARE, OTHER, SELFPAY | PROVIDERS: PCP Family Medicine; Visit Provider Radiology Diagnostic Radiology | DX: J44.9 Chronic obstructive pulmonary disease, unspecified (principal) | CPT/HCPCS: 71046 ==

== ENCOUNTER 2025-02-12 10:53 | Outpatient (AMB) | payer MEDICARE, OTHER, SELFPAY ==
--- NOTE | 2025-02-12 11:27 | MHC.OFFVIS ---
Intake Visit Reasons: 6MWT Allergies No Known Allergies Allergy (Verified 01/27/25 14:23) [facility] Medical History (Updated 01/27/25 @ 21:49 by Ilya Sheikh MD) Muscle spasm Vitamin D deficiency Venous insufficiency of both lower extremities Swelling of lower leg Seborrheic keratoses Osteoarthritis Neuropathy of both feet Headache [facility] arthritis Anxiety Angiolipoma Actinic keratosis Reactive airway disease Pulmonary nodules Vocal cord dysfunction GALLO on CPAP GERD (gastroesophageal reflux disease) Dyspnea Family History (Updated 12/01/24 @ 07:58 by Yohan Addison [facility]) Mother Breast cancer Father Prostate cancer Social History Alcohol intake: former Patient Tobacco Use Status: Never used Tobacco Substance Use Type: Marijuana Office Procedures 6 Minute Walk Time:: 11:08 SPO2 % at rest: 99 Pulse at rest: 77 SPO2 % during excercise: 98 Pulse during excercise: 84 SPO2 % after excercise: 100 Pulse after excercise: 76 Distance in yards walked: 100 Trina Score: 5 Performance Observations:: Patient walked unassisted on level ground. Patient maintained O2 saturation of 98-100% with pulse of 77-84 for the entirety of the walk. No respiratory distress noted. Patient did not require the use of supplemental oxygen. [id number] - 6 Minute Walk Assessment & Plan Assessment & Plan (1) Dyspnea: Code(s): R06.00 - Dyspnea, unspecified Category: Medical Qualifiers: Dyspnea type: shortness of breath Qualified Code(s): R06.02 - Shortness of breath Plan 6mwt Orders: Orders AMB 6 minute walk Today J45.40 - Moderate persistent asthma, uncomplicated Coding Level of Care Code Est Pt Level 1 (62783) Diagnoses Shortness of breath R06.02 Dyspnea type: shortness of breath CPT Codes Coding ([id number])
[2025-02-12 11:38] VITALS: PULSE 77; O2SAT 99
== END 2025-02-12 14:32 | disposition home or self-care (01) ==
LOC: HO.HPS 10:53
PROVIDERS: PCP Family Medicine; Visit Provider Hospitalist
DX: R06.02 Shortness of breath (principal)
CPT/HCPCS: 94618

== ENCOUNTER 2025-02-12 11:22 | Outpatient (REF) | payer MEDICARE, OTHER, SELFPAY ==
--- NOTE | 2025-02-12 11:29 | PFT_ITS ---
Spirometry [] Lung Volumes [] Diffusion Capacity [] Methacholine Challenge [] Flow Volume Loops [] MVV [] MIP/MEP(Max inspiratory pressure/Max expiratory pressure) [] 6 Minute Walk Test [] ABG [] Interpretation [] MTDD
[2025-02-12 12:13] VITALS: PULSE 68
== END 2025-02-12 11:23 | disposition home or self-care (01) ==
LOC: HO.RESP 11:22
PROVIDERS: PCP Family Medicine; Visit Provider Hospitalist
DX: J45.40 Moderate persistent asthma, uncomplicated (principal); R06.02 Shortness of breath
CPT/HCPCS: 94060; 94618; 94640; 94727; 94729; 99211

== ENCOUNTER 2025-03-02 08:02 | Outpatient (AMB) | payer MEDICARE, OTHER, SELFPAY ==
--- NOTE | 2025-03-02 08:03 | MHC.OFFVIS ---
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 To review: He was treated initially by Dr. Gant in the past receiving left occipital nerve blocks and trigger point injections with potentially some worsening of pain. We have been using a combination of myofascial release, physical therapy, and muscle relaxers. We have gained some headway in the past however ongoing leak, it seems as though his left-sided headaches have been triggered by upper body muscle overuse. He has had some improvement in his symptoms with gabapentin dose currently at 400 mg 3 times daily. This was increased back in October from 300 mg 3 times daily. He believes that his headaches have worsened in the summer months a couple of years in a row provided that he had started doing some increased physical activity/workout exercises each time. He has a difficult time driving for long distances or doing activities that require repetitive motions. He notices that activities such as gardening and trigger his headaches. He has a difficult time walking long distances. He notices that when he is approaching 1 mi, he started to have headache. He can however go longer distances if he puts his left hand in his pocket and does not allow it to swing while he is walking. He also notes that turning his head repetitively can also trigger his headaches. His head pain is primarily to the left occipital area and radiates up the front of his head to the retro-orbital and temporal areas. Historically has not had any autonomic or migrainous symptoms associated with his headaches. Since starting on the higher dose of gabapentin, he has not had any of his headaches radiate to the retro-orbital or temporal areas but it does reside still in the left occipital area. Headaches currently are more manageable however he estimates that he has had a total of 11 headaches over the course of the last month. Each of these headaches can last several hours . At the time of his last visit we performed trigger point injections and I started him on a trial of baclofen in addition to his gabapentin. He had trigger points both in November and December. He did see some reduction in headaches after the trigger point injections. He did try the baclofen but he did not feel that it was overly beneficial. He was started on cyclobenzaprine by pulmonology and taken off his Symbicort and albuterol as it was thought that perhaps this was causing muscle spasms. Since these medication changes he has also made some dietary changes including reduction in inflammatory foods. Over the course of the last 2 months he has seen a significant reduction in the frequency of his headaches that he will still from time to time feel some muscle cramping in the left trapezius and left occipital area. He has had very few headaches. Past medication trials: Cyclobenzaprine-initially some benefit though more recently no benefit Tizanidine-no benefit Gabapentin-does provide some level of pain relief. He is currently taking this Prior workup: 10/04/2024 MRI of the brain with without contrast: No intracranial mass or mass effect. Scattered small FLAIR bright foci within the supratentorial white matter unchanged. These are nonspecific, but are compatible with chronic microangiopathic/small-vessel ischemic change. 07/16/2022 MRI of the cervical spine: There is some chronic anterior wedging of the C7, Modic type 2 signal changes at C3 through 4, and C3 through 4 there is facet and uncovertebral joint spurring as well as moderate to severe bilateral neural foraminal stenosis. [facility] Medical History (Updated 01/27/25 @ 21:49 by Ilya Sheikh MD) Muscle spasm Vitamin D deficiency Venous insufficiency of both lower extremities Swelling of lower leg Seborrheic keratoses Osteoarthritis Neuropathy of both feet Headache CMC arthritis Anxiety Angiolipoma Actinic keratosis Reactive airway disease Pulmonary nodules Vocal cord dysfunction GALLO on CPAP GERD (gastroesophageal reflux disease) Dyspnea Family History (Updated 12/01/24 @ 07:58 by Yohan Addison CMA) Mother Breast cancer Father Prostate cancer Social History Alcohol intake: former Patient Tobacco Use Status: Never used Tobacco Substance Use Type: Marijuana Review of Systems Const All systems reviewed & are unremarkable except as noted in HPI and below Physical Exam Vital Signs: Last Vital Signs Pulse 66 03/02/25 08:10 Resp 16 03/02/25 08:10 BP 131/77 03/02/25 08:10 Pulse Ox 98 03/02/25 08:10 Oxygen Delivery Method Room Air 03/02/25 08:10 BMI result Body Mass Index 28.1 Const General: cooperative, healthy appearing, comfortable and no acute distress Nutritional Appearance: well nourished Orientation/consciousness: patient oriented x3 Limitations: no limitations HEENT Head: Yes normal to inspection and Yes normocephalic Eyes General: appearance normal, both eyes and all related structures Visual Capone: normal visual capone by confrontation Alignment and Position: alignment normal Periorbital: periorbital findings normal Eyelids: Yes eyelids normal Conjunctivae: conjunctivae normal Sclerae: sclerae normal Back/Spine/Pelvis Other: Left upper trapezius trigger points. Neuro General: patient oriented x3 Cranial nerves: Yes CN's II-XII intact bilaterally and Yes Facial sensation intact/muscles of mastication intact Cognition (Neuro): normal cognition Gait exam (Neuro): Normal gait present Motor exam (neuro): 5/5 motor strength present throughout and no tremor noted Sensory Exam: double simultaneous stimulation for sensation normal Romberg Test: Negative Pupils: Normal pupillary reactivity/response: bilateral Psych Appearance: grossly normal Mental Status: mental status grossly normal Speech and movement: Normal speech and movement present and Clear speech present Affect: normal affect Attitude: cooperative Thought process: Normal thought process present Thought content: Normal thought content present Insight: Good insight present (Psych) Judgement: Good judgement present (Psych) Assessment & Plan Assessment & Plan (1) Left-sided headache: Code(s): R51.9 - Headache, unspecified Category: Medical Plan: . (2) Trigger point of left shoulder region: Code(s): M25.512 - Pain in left shoulder Category: Medical Plan: . (3) Myofascial pain: Code(s): M79.18 - Myalgia, other site Category: Medical Plan: . Elyse Rasheed is a 64-year-old male patient with a past medical history of anxiety, osteoarthritis, peripheral neuropathy, and GALLO on CPAP who is here today for a follow-up visit. During last couple of visits we did trigger point injections to the left trapezius muscle which seemingly were helpful. He is also placed on baclofen in addition to his gabapentin though did not feel that it was significantly beneficial and has stopped it. Interestingly, he has been working with pulmonology and he has had some chest tightness. He was started on a trial of cyclobenzaprine and taken off of his inhalers which seemingly have helped with the muscle spasms. He also has changed his diet significantly to reduce inflammatory foods. Overall, with the changes he has had nearly half of the amount of headaches over the course of the last couple of months. He is overall doing well and for now he would like to hold off on any trigger point injections. We will continue his gabapentin and I will provide him with an as-needed supply of cyclobenzaprine 5 mg in the morning and 10 mg in the evening as needed. -continue gabapentin 400 mg 3 times daily -cyclobenzaprine as needed given a supply allowing for 5 mg 3 times daily -continue myofascial release techniques at home -follow up in 4 months or sooner if needed Medications: Changed From cyclobenzaprine 5 mg PO TID 15 days PRN 45 tabs 0RF muscle spasm To cyclobenzaprine 5 mg PO TID PRN 45 tabs 1RF muscle spasm 30 days Coding Level of Care Code Est Pt Level 4 (47092) Diagnoses Left-sided headache R51.9 Trigger point of left shoulder region M25.512 Myofascial pain M79.18
--- OUTSIDE RECORDS SUMMARY | 2025-03-02 08:05 | XMS_ITS | Clinical Summary ---
Author Organization [facility] Address [address] [facility] [address] [place] [address] Phone Care Team Providers Care Firebrick Layer Name Role Phone Alexis Ross MD Primary [...] Care Team (Late st Contact Info) Description 04/21/2025 8:30 AM EST Office Visit [facility] [address] [place] [address] [place] [address] Ilya Sheikh MD [address] [place] [address] [place] [address] Leslie Lemos [facility]-SUPPORT SERVICES TECH [address] [place] [address] 04/28/2025 10:30 AM EST Office Visit [facility] [address] [place] [address] Ilya Sheikh MD [address] [place] [address] [place] [address] Leslie Lemos [facility]-SUPPORT SERVICES TECH [address] [place] [phone] 05/05/2025 10:30 AM EST Office Visit [facility] [address] [place] [address] Ilya Sheikh MD [address] [place] [address] [place] [address] Leslie Lemos [facility]-SUPPORT SERVICES TECH [address] [place] [id number] 05/12/2025 10:30 AM EDT Office Visit [facility] [address] [place] [address] Ilya Sheikh MD [address] [place] [address] [place] [address] Leslie Lemos [facility]-SUPPORT SERVICES TECH [address] [place] [address] 05/19/2025 8:30 AM EDT Office Visit [facility] [address] [place] [address] Ilya Sheikh MD [address] [place] [address] [place] [address] Leslie Lemos [facility]-SUPPORT SERVICES TECH [address] [place] [phone] 05/26/2025 8:30 AM EDT Office Visit [facility] [address] [place] [address] Ilya Sheikh MD [address] [place] [address] [place] [address] Leslie Lemos [facility]-SUPPORT SERVICES TECH [address] [place] [phone] 06/01/2025 8:00 AM EDT Office Visit [facility] [address] [facility] [address] [place] [address] Harpreet Montgomery MD [address] [place] [address] [email or web address] 06/02/2025 8:30 AM EDT Office Visit [facility] [address] [place] [address] [place] [address] Ilya Sheikh MD [address] [place] [address] [place] [address] Leslie Lemos [facility]-SUPPORT SERVICES TECH [address] [place] [address] 06/09/2025 8:30 AM EDT Office Visit [facility] [address] [place] [address] Ilya Sheikh MD [address] [place] [address] [place] [address] Leslie Lemos [facility]-SUPPORT SERVICES TECH [address] [place] [phone] 06/16/2025 8:30 AM EDT Office Visit [facility] [address] [place] [address] Ilya Sheikh MD [address] [place] [address] [place] [address] Leslie Lemos [facility]-SUPPORT SERVICES TECH [address] [place] [phone] 06/23/2025 8:30 AM EDT Office Visit [facility] [address] [place] [address] [place] [address] Ilya Sheikh MD [address] [place] [address] [place] [address] Leslie Lemos [facility]-SUPPORT SERVICES TECH [address] [place] [address] 06/30/2025 8:30 AM EDT Office Visit [facility] [address] [place] [address] Ilya Sheikh MD [address] [place] [address] [place] [address] Leslie Lemos [facility]-SUPPORT SERVICES TECH [address] [place] [address] 07/07/2025 8:30 AM EDT Office Visit [facility] [address] [place] [address] Ilya Sheikh MD [address] [place] [address] [place] [address] Leslie Lemos [facility]-SUPPORT SERVICES TECH [address] [place] [address] [email or web address] Health Maintenance Due Date Last Done Comments [...] 2009 INFLUENZA VACCINE (#1) 2024 COVID-19 VACCINE ( - 2024-2 6 season) 2024 RSV VACCINE [...] file Insurance MEDICARE PART A & B [employer] MEDICARE SUPPLEMENT MEDICARE PART A & B [employer] MEDICARE SUPPLEMENT MEDICARE PART A & B [employer] MEDICARE SUPPLEMENT MEDICARE PART A & B [employer] MEDICARE SUPPLEMENT MEDICARE PART A & B [facility] SA[facility] MEDICARE SUPPLEMENT MEDICARE PART A & B [employer] MEDICARE SUPPLEMENT Care Teams Firebrick Layer Relationship Specialty Start Date End Date Alexis Ross MD [address] [place] [id number] PCP - General Family Medicine 08/20/24 Additional Source Comments The information contained in this document represents components of the legal health record. It is not the complete legal health record.[facility]
--- OUTSIDE RECORDS SUMMARY | 2025-03-02 08:05 | XMS_ITS | Continuity of Care Document ---
Author Organization [place] - [facility], [facility] Address [address] [place] [address] Care Team Providers Care Filter Tank Operator Name Role Phone MIGUEL BUENROSTRO Primary Care [...] Sensorine ural hearing loss of bilateral ears [id number] Active 2017 Sensorine ural hearing loss, bilateral ; Note: Date Diagnosed : 05/31/2017 9:35 AM (H90.3) LUIS FELIPE GASPAR PA-C [address] [place] [address], [facility] [place], [address] , [place] - [facility] [place] [address]/202 5 14:55:20 Disorder of right Eustachia n tube [id number] 01583 Active 2017 Other specified disorders of Eustachia n tube, right ear; Note: Date Diagnosed : 05/31/2017 9:35 AM (H69.81) Not Available [facility] 4 02:16:30 Tinnitus of right ear [id number] 08 Active 2017 Tinnitus, right ear; Note: Date Diagnosed : 05/31/2017 10:11 AM (H93.11) Not Available [facility] 4 02:15:51 Sudden idiopathi c hearing loss 611818898 Active 2017 Sudden idiopathi c hearing loss, right ear; Note: Date Diagnosed : 05/31/2017 10:12 AM (H91.21) Not Available [facility] 4 02:16:27 Impacted cerumen in left ear 96556538180 15495 Active 2024 LUIS FELIPE GASPAR PA-C [address] [place] [address],[place] [address], [place], [address] , [place] - [facility] 5 14:55:13 Problem Notes None recorded. Procedures Surgical History Date Name Laterality Status Provider Name and Address Organization Details Recorded Time 5 Cerumen removal without microscope left completed LUIS FELIPE GASPAR PA-C [address] [place] [address],[place] [address], [place], [address], [place] [facility] [...] spray,vin pension 2017 active Medicati on ID: [id number] D uration Value: 30 Brand Name: fluticas [...] Available No t Available [employer]amb [employer] spacer USE DIRECTED WITH INHALER active Not Available Not Available No t Available baclofen 5 mg tablet TAKE 1 TABLET ORALLY BEDTIME NEEDED FOR MUSCLE SPASM active Not Available Not Available No t Available Vitals Date Recorded Body height Body mass index (BMI) Body weight Provider Name and Address Organization Details Last Updated DateTime 12/08/2024 185.42 cm 28.2 kg/m2 44976.77 g STEPHANIE HERNANDEZ [place] - [facility] [...] ICD10 Code Diagnosis IMO Codes Diagnosis Note [id number] LUIS FELIPE GASPAR PA-C [facility] [address] [place] [address] 12/08/2024 14:22:43 12/08/2024 14:39:35 Impacted cerumen in left ear [id number] 105385 H61.22 3432526 Sensorineu ral hearing loss of bilateral ears 645164261 H90.3 Health Concerns Section Related Observation LastModified by Organization Detai ls LastModified Time None Recorded Concern Status LastModified by Organization Details LastModified Time None Recorded Payers Encounter Date Sequence Insurance Name Policy Number Policy Ortiz Covered Member ID Ortiz Member ID Guarantor Name 12/08/2024 1 [place] [employer] Wili Mcgarry [id number] Wili Mcgarry 12/08/2024 2 FOR LIFE ( - MEDICARE SUPPLEMENT) Wili Mcgarry [id number] Wili Mcgarry Notes Date Note Type Note [...] to find result LUIS FELIPE GASPAR PA-C [address] [place] [address],[place] [address], [place], [address], [facility] - [facility] 12/08/2024 14:55:47
--- OUTSIDE RECORDS SUMMARY | 2025-03-02 08:05 | XMS_ITS | Data Portability ---
Author Organization [place] - [facility], Allergy Address [address] [address] Care Team Providers Care Retail Leasing Agent Name Role Phone MIGUEL BUENROSTRO Primary Care [...] Sensorine ural hearing loss of bilateral ears [id number] Active 2017 Sensorine ural hearing loss, bilateral ; Note: Date Diagnosed : 05/31/2017 9:35 AM (H90.3) LUIS FELIPE GASPAR PA-C [address] [facility] [address], [place], [address] , [place] - [facility] 10/06/202 5 14:55:20 Disorder of right Eustachia n tube 27741819365 66430 Active 2017 Other specified disorders of Eustachia n tube, right ear; Note: Date Diagnosed : 05/31/2017 9:35 AM (H69.81) Not Available [facility] 4 02:16:30 Tinnitus of right ear 26419559824 08 Active 2017 Tinnitus, right ear; Note: Date Diagnosed : 05/31/2017 10:11 AM (H93.11) Not Available [facility] 4 02:15:51 Sudden idiopathi c hearing loss 905189377 Active 2017 Sudden idiopathi c hearing loss, right ear; Note: Date Diagnosed : 05/31/2017 10:12 AM (H91.21) Not Available [facility] 4 02:16:27 Impacted cerumen in left ear 33752528596 25106 Active 2024 LUIS FELIPE GASPAR PA-C [address] [place] [address], [place], [address] , [facility] 5 14:55:13 Problem Notes None recorded. Procedures Surgical History Date Name Laterality Status Provider Name and Address Organization Details Recorded Time 5 Cerumen removal without microscope left completed LUIS FELIPE GASPAR PA-C [address] [place] [address],[place] [address], [place], [address], [facility] 12/08/2024 14:50:34 vasectomy completed STEPHANIE Mata [facility] 12/08/2024 14:32:26 Imaging Results None recorded. [...] spray,vin pension 2017 active Medicati on ID: [id number] D uration Value: 30 Brand Name: fluticas [...] Available No t Available [facility]amb er [facility] spacer USE DIRECTED WITH INHALER active Not Available Not Available No t Available baclofen 5 mg tablet TAKE 1 TABLET ORALLY BEDTIME NEEDED FOR MUSCLE SPASM active Not Available Not Available No t Available Vitals Date Recorded Body height Body mass index (BMI) Body weight Provider Name and Address Organization Details Last Updated DateTime 12/08/2024 185.42 cm 28.2 kg/m2 88525.77 g STEPHANIE HERNANDEZ [place] - [facility] 12/08/2024 14:30:55 Social History None recorded. Functional Status None recorded. Mental Status None recorded. Family History Nothing Reported. Medical History Condition Response Headaches Y Arthritis Y Past Encounters Encounter ID Performer Location Encounter Start Date Encounter Closed Date Diagnosis/Indication Diagnosis SNOMED-CT Code Diagnosis ICD10 Code Diagnosis IMO Codes Diagnosis Note [id number] LUIS FELIPE GASPAR PA-C [facility] [address] [place] [address] 12/08/2024 14:22:43 12/08/2024 14:39:35 Impacted cerumen in left ear [id number] 597654 H61.22 2774207 Sensorineu ral hearing loss of bilateral ears 226729951 H90.3 Health Concerns Section Related Observation LastModified by Organization Detai ls LastModified Time None Recorded Concern Status LastModified by Organization Details LastModified Time None Recorded Advance Directives Directive None Recorded Payers Insurance Date Sequence Insurance Name Policy Number Policy Ortiz Covered Member ID Ortiz Member ID Guarantor Name 12/08/2024 1 [place] [employer] Wili Mcgarry [id number] Wili Mcgarry 12/08/2024 2 FOR LIFE ( - MEDICARE SUPPLEMENT) Wili Mcgarry [id number] Wili Mcgarry Notes Date Note Type Note [...] to find result LUIS FELIPE GASPAR PA-C [address] [place] [address], [place], [address], [facility] - [facility] 12/08/2024 14:55:47
[2025-03-02 08:10] VITALS: BP 131/77; PULSE 66; RESP 16; O2SAT 98; BMI 28.1
== END 2025-03-02 08:47 | disposition home or self-care (01) ==
LOC: HO.HSM 08:02
PROVIDERS: PCP Family Medicine; Visit Provider Nurse Practitioner
DX: R51.9 Headache, unspecified (principal); M25.512 Pain in left shoulder; M79.18 Myalgia, other site
CPT/HCPCS: 99214

== ENCOUNTER → 2025-03-02 08:02 | Outpatient (BNVA) | payer MEDICARE, OTHER, SELFPAY | PROVIDERS: PCP Family Medicine; Visit Provider Nurse Practitioner | DX: R51.9 Headache, unspecified (principal); M25.512 Pain in left shoulder; M79.18 Myalgia, other site | CPT/HCPCS: 99212 ==